=== PATIENT | male | born 1950 | race Caucasian/White ===

== ENCOUNTER 2018-01-09 12:35 | Inpatient (IN) | payer MEDICARE, OTHER ==
--- NOTE | 2018-01-09 13:06 | ED ---
General Adult HPI - General Chief complaint: Shortness of Breath Stated complaint: SOB Time Seen by Provider: 01/09/18 12:52 Source: patient, family, RN notes reviewed Mode of arrival: wheelchair Limitations: no limitations - History of Present Illness Initial comments: Patient is a pleasant 67-year-old male presenting to the emergency department with difficulty in breathing. Symptoms have been occurring for close to a month now. Symptoms are intermittent. Symptoms are exertional at times. Patient also has had increased stress recently and that also seems to make symptoms worse. Dyspnea is also worse with lying down. Patient states his right leg feels a little bit more full. Patient denies any leg discomfort. Patient states he has had some chest tightness. - Related Data Home Medications Medication Instructions Recorded Confirmed Aspirin EC [Ecotrin Low Dose] 81 mg PO HS 01/09/18 01/09/18 Chlorpheniramine/Dextromethorp 1 tab PO HS PRN 01/09/18 01/09/18 [Coricidin Hbp Cough & Cold Tab] Cholecalciferol (Vitamin D3) 2,000 unit PO DAILY 01/09/18 01/09/18 [Vitamin D3] Cyclobenzaprine [Flexeril] 5 - 10 mg PO Q8H PRN 01/09/18 01/09/18 Diazepam [Valium] 5 - 10 mg PO DAILY PRN 01/09/18 01/09/18 Ginkgo Biloba [place] Extract [Ginkgo] 60 mg PO DAILY 01/09/18 01/09/18 Magnesium 200 mg PO DAILY 01/09/18 01/09/18 [place]-3 Fatty Acids/Fish Oil [Fish 1 cap PO DAILY 01/09/18 01/09/18 Oil 1,000 mg Softgel] Saw [place] 160 mg PO DAILY 01/09/18 01/09/18 Ubidecarenone [Co Q-10] 100 mg PO DAILY 01/09/18 01/09/18 diphenhydrAMINE [Benadryl] 50 mg PO DAILY PRN 01/09/18 01/09/18 Allergies Allergy/AdvReac Type Severity Reaction Status Date / Time No Known Allergies Allergy Verified 01/09/18 13:06 Review of Systems ROS Statement: Those systems with pertinent positive or pertinent negative responses have been documented in the HPI. ROS Other: All systems not noted in ROS Statement are negative. Constitutional: Denies: fever Eyes: Denies: eye pain ENT: Denies: ear pain Respiratory: Reports: dyspnea Cardiovascular: Denies: palpitations Endocrine: Reports: fatigue Gastrointestinal: Denies: abdominal pain Genitourinary: Denies: dysuria Musculoskeletal: Denies: back pain Skin: Denies: rash Neurological: Denies: weakness Past Medical History Past Medical History: Cancer, Diabetes Mellitus, Hypertension, Pneumonia, Thyroid Disorder Additional Past Medical History / Comment(s): skin cancer History of Any Multi-Drug Resistant Organisms: None Reported Past Surgical History: Orthopedic Surgery Additional Past Surgical History / Comment(s): pelvis, ankle Past Psychological History: No Psychological Hx Reported Smoking Status: Former smoker Past Alcohol Use History: None Reported Past Drug Use History: None Reported General Exam Limitations: no limitations General appearance: alert, in no apparent distress Head exam: Present: atraumatic Eye exam: Present: normal appearance, PERRL ENT exam: Present: normal oropharynx Neck exam: Present: normal inspection Respiratory exam: Present: normal lung sounds bilaterally. Absent: chest wall tenderness Cardiovascular Exam: Present: regular rate, normal rhythm GI/Abdominal exam: Present: soft. Absent: tenderness Extremities exam: Present: normal inspection. Absent: calf tenderness Neurological exam: Present: alert Psychiatric exam: Present: normal affect, normal mood Skin exam: Absent: rash Course Vital Signs 01/09/18 01/09/18 12:38 14:09 Temperature 97.6 F Pulse Rate 96 84 Respiratory 20 18 Rate Blood Pressure 152/78 133/89 O2 Sat by Pulse 97 98 Oximetry EKG Findings - EKG Comments: EKG Findings:: Normal sinus rhythm 96. NC 198. QRS 124. QT 388. QTC or 90. Left axis. Left anterior fascicular block. Inverted T waves V5 V6. Medical Decision Making - Medical Decision Making Patient reevaluated and resting comfortably in bed. Patient and family updated on results and plan. Case was discussed in detail with Dr. Leal, who will admit for Dr. huddleston. Consults will be placed for cardiology and pulmonary. Patient does not meet sepsis criteria. Clinically patient presents more congestive heart failure than pneumonia however patient will be covered with antibiotics secondary to abnormal opacity on chest x-ray. - Lab Data Result diagrams: 01/09/18 13:00 01/09/18 13:00 Lab Results 01/09/18 01/09/18 01/09/18 Range/Units 13:00 13:00 13:00 WBC 5.3 (3.8-10.6) k/uL RBC 4.91 (4.30-5.90) m/uL Hgb 13.8 (13.0-17.5) gm/dL Hct 44.1 (39.0-53.0) % MCV 89.7 (80.0-100.0) fL MCH 28.2 (25.0-35.0) pg MCHC 31.4 (31.0-37.0) g/dL RDW 14.3 (11.5-15.5) % Plt Count 185 (150-450) k/uL Neutrophils % 71 % Lymphocytes % 21 % Monocytes % 6 % Eosinophils % 1 % Basophils % 1 % Neutrophils # 3.8 (1.3-7.7) k/uL Lymphocytes # 1.1 (1.0-4.8) k/uL Monocytes # 0.3 (0-1.0) k/uL Eosinophils # 0.1 (0-0.7) k/uL Basophils # 0.0 (0-0.2) k/uL Hypochromasia Slight PT (9.0-12.0) sec INR (<1.2) APTT (22.0-30.0) sec Sodium 140 (137-145) mmol/L Potassium 4.7 (3.5-5.1) mmol/L Chloride 107 (98-107) mmol/L Carbon Dioxide 29 (22-30) mmol/L Anion Gap 4 mmol/L BUN 26 H (9-20) mg/dL Creatinine 0.80 (0.66-1.25) mg/dL Est GFR (CKD-EPI)AfAm >90 (>60 ml/min/1.73 sqM) Est GFR (CKD-EPI)NonAf >90 (>60 ml/min/1.73 sqM) Glucose 146 H (74-99) mg/dL Calcium 8.5 (8.4-10.2) mg/dL Total Bilirubin 0.8 (0.2-1.3) mg/dL AST 36 (17-59) U/L ALT 62 (21-72) U/L Alkaline Phosphatase 74 (38-126) U/L Total Creatine Kinase 25 L (55-170) U/L CK-MB (CK-2) 2.0 (0.0-2.4) ng/mL CK-MB (CK-2) Rel Index 8.0 Troponin I 0.059 H* (0.000-0.034) ng/mL NT-Pro-B Natriuret Pep pg/mL Total Protein 5.9 L (6.3-8.2) g/dL Albumin 3.3 L (3.5-5.0) g/dL 01/09/18 01/09/18 Range/Units 13:00 13:00 WBC (3.8-10.6) k/uL RBC (4.30-5.90) m/uL Hgb (13.0-17.5) gm/dL Hct (39.0-53.0) % MCV (80.0-100.0) fL MCH (25.0-35.0) pg MCHC (31.0-37.0) g/dL RDW (11.5-15.5) % Plt Count (150-450) k/uL Neutrophils % % Lymphocytes % % Monocytes % % Eosinophils % % Basophils % % Neutrophils # (1.3-7.7) k/uL Lymphocytes # (1.0-4.8) k/uL Monocytes # (0-1.0) k/uL Eosinophils # (0-0.7) k/uL Basophils # (0-0.2) k/uL Hypochromasia PT 11.2 (9.0-12.0) sec INR 1.2 H (<1.2) APTT 25.1 (22.0-30.0) sec Sodium (137-145) mmol/L Potassium (3.5-5.1) mmol/L Chloride (98-107) mmol/L Carbon Dioxide (22-30) mmol/L Anion Gap mmol/L BUN (9-20) mg/dL Creatinine (0.66-1.25) mg/dL Est GFR (CKD-EPI)AfAm (>60 ml/min/1.73 sqM) Est GFR (CKD-EPI)NonAf (>60 ml/min/1.73 sqM) Glucose (74-99) mg/dL Calcium (8.4-10.2) mg/dL Total Bilirubin (0.2-1.3) mg/dL AST (17-59) U/L ALT (21-72) U/L Alkaline Phosphatase (38-126) U/L Total Creatine Kinase (55-170) U/L CK-MB (CK-2) (0.0-2.4) ng/mL CK-MB (CK-2) Rel Index Troponin I (0.000-0.034) ng/mL NT-Pro-B Natriuret Pep 67579 pg/mL Total Protein (6.3-8.2) g/dL Albumin (3.5-5.0) g/dL - Radiology Data Radiology results: report reviewed (Ultrasound of the right leg negative for DVT ), image reviewed (Chest x-ray shows bilateral effusions. Right lower lobe infiltrate.) Disposition Clinical Impression: Congestive heart failure, Community acquired pneumonia Disposition: ADMITTED IP TO THIS HOSP Is patient prescribed a controlled substance at d/c from ED?: No Referrals: Lashae Ward MD [Primary Care Provider] - 1-2 days Decision Time: 14:29
[2018-01-09 13:15] LABS: Basophils % (A) 1 %; Eosinophils # (A) 0.1 k/uL (0-0.7); Eosinophils % (A) 1 %; HCT 44.1 % (39.0-53.0); HGB 13.8 gm/dL (13.0-17.5); Hypochromasia Slight; Lymphocytes # (A) 1.1 k/uL (1.0-4.8); Lymphocytes % (A) 21 %; MCH 28.2 pg (25.0-35.0); MCHC 31.4 g/dL (31.0-37.0); MCV 89.7 fL (80.0-100.0); Mean Platelet Volume 7.9; Monocytes # (A) 0.3 k/uL (0-1.0); Monocytes % (A) 6 %; Neutrophils # (A) 3.8 k/uL (1.3-7.7); Neutrophils % (A) 71 %; Platelet Count 185 k/uL (150-450); RBC 4.91 m/uL (4.30-5.90); RDW 14.3 % (11.5-15.5); WBC 5.3 k/uL (3.8-10.6)
[2018-01-09 13:22] LABS: INR 1.2 (<1.2)
[2018-01-09 13:23] LABS: Partial Thromboplastin Time 25.1 sec (22.0-30.0); Prothrombin Time 11.2 sec (9.0-12.0)
--- NOTE | 2018-01-09 13:24 | XR ---
EXAMINATION TYPE: XR chest 2V DATE OF EXAM: 01/09/2018 COMPARISON: NONE HISTORY: Shortness of breath TECHNIQUE: Frontal and lateral views of the chest are obtained. FINDINGS: Scattered senescent parenchymal changes noted. Hyperinflation compatible with COPD. Patchy right lower lobe infiltrate with small bilateral effusions. Correlate for pneumonia. Mild stra ndy density left medial lung base. Nodular density right upper lobe may reflect rib end. Heart size is stable. Mediastinal structures are stable and grossly unremarkable. No evidence for hilar prominence. Degenerative changes dorsal spine. IMPRESSION: 1. Patchy right lower lobe infiltrate with small bilateral effusions. Correlate for pneumonia. Mild s trandy density left medial lung base.
[2018-01-09 13:30] LABS: ALT 62 U/L (21-72); AST 36 U/L (17-59); Albumin 3.3 g/dL (3.5-5.0); Alkaline Phosphatase 74 U/L (38-126); Anion Gap 4 mmol/L; Blood Urea Nitrogen 26 mg/dL (9-20); Calcium 8.5 mg/dL (8.4-10.2); Carbon Dioxide 29 mmol/L (22-30); Chloride 107 mmol/L (98-107); Glucose 146 mg/dL (74-99); Potassium 4.7 mmol/L (3.5-5.1); Sodium 140 mmol/L (137-145); Total Bilirubin 0.8 mg/dL (0.2-1.3); Total Protein 5.9 g/dL (6.3-8.2)
[2018-01-09 13:52] LABS: Troponin I 0.059 ng/mL (0.000-0.034)
--- NOTE | 2018-01-09 14:00 | US ---
EXAMINATION TYPE: US venous doppler duplex LE RT DATE OF EXAM: 01/09/2018 1:49 PM COMPARISON: NONE CLINICAL HISTORY: Pain. rt leg swelling, h/o dvt 45 years ago SIDE PERFORMED: right TECHNIQUE: The lower extremity deep venous system is examined utilizing real time linear array sonog ricardo with graded compression, doppler sonography and color-flow sonography. VESSELS IMAGED: External Iliac Vein (EIV) Common Femoral Vein Deep Femoral Vein Greater Saphenous Vein * Femoral Vein Popliteal Vein Small Saphenous Vein * Proximal Calf Veins (* superficial vessels) Grayscale, color doppler, spectral doppler imaging performed of the deep veins of the lower extremiti es. There is normal flow, compressibility, vascular waveforms. Right Leg: Appears negative for DVT IMPRESSION: Negative
[2018-01-09] MEDS ORDERED: AZITHROMYCIN 500 MG in SODIUM CHLORIDE 0.9% 250 ML IVPB STA (14:29)
[2018-01-09] MEDS ORDERED: cefTRIAXone IN SWFI 1,000 MG/10 ML SYRINGE IVP STA (14:29)
[2018-01-09] MEDS ORDERED: PNEUMONIA PROTOCOL UTILIZED 1 EACH MISC PO PRN (14:29)
[2018-01-09] MEDS ORDERED: ASPIRIN 325 MG TAB PO STA (14:29)
[2018-01-09] MEDS: FUROSEMIDE 10 MG/ML 4 ML VIAL IV SCH ×2 (15:36→21:22)
--- NOTE | 2018-01-09 16:31 | P.CNPUL ---
History of Present Illness Consult date: 01/09/18 Reason for consult: dyspnea History of present illness: 67-year-old male patient, presented to the emergency department with difficulty breathing of 3 weeks' duration. Has been expressing progressive exertional dyspnea orthopnea and some paroxysmal nocturnal dyspnea and lower extremity edema. No chest pain. No palpitation. No pleurisy. No hemoptysis. No fever chills or night sweats. No previous history of cardiac disease. He is an ex- smoker and quit smoking 3 years ago. He has a component of COPD. He does not utilize oxygen no refuses any form of respiratory medications or inhalers. He recalls a previous history of pneumonia with parapneumonic effusion requiring a chest tube insertion on the left. He comes into the hospital and he was found to have normal white count, normal renal function, significantly elevated proBNP level which is above 10,000. EKG showing left anterior fascicular block and Q waves over the anterior leads suggestive of an old LA. His cardiac mechanism is sinus. His chest x-ray shows CHF along with a right-sided pleural effusion. No weight loss. No other constitutional symptoms for now. No chest trauma. No pleurisy. The patient is living out of his trailer and he is moving to different states and he is about to move to [place] next week. Review of Systems Constitutional: Reports fatigue Eyes: denies as per HPI, denies blurred vision, denies bulging eye, denies decreased vision Ears: deny: decreased hearing, ear discharge, earache Ears, nose, mouth and throat: Reports hoarseness, Reports voice changes Cardiovascular: Reports decreased exercise tolerance, Reports dyspnea on exertion, Reports edema, Reports paroxysmal nocturnal dyspnea, Reports shortness of breath Respiratory: Reports dyspnea Gastrointestinal: Denies abdominal pain, Denies diarrhea, Denies nausea, Denies vomiting Genitourinary: Reports as per HPI Musculoskeletal: Denies myalgias Musculoskeletal: bilateral: ankle swelling, absent: ankle pain, ankle stiffness Integumentary: Denies pruritus, Denies rash Neurological: Reports as per HPI Psychiatric: Reports as per HPI Endocrine: Reports as per HPI Hematologic/Lymphatic: Reports as per HPI Allergic/Immunologic: Reports as per HPI Past Medical History Past Medical History: Cancer, Diabetes Mellitus, Hypertension, Pneumonia, Thyroid Disorder Additional Past Medical History / Comment(s): COPD, remote history of pneumonia , remote history of parapneumonic effusion requiring chest tube insertion, skin cancer, diabetes mellitus, hypertension, thyroid nodule surgically resected, vocal cord nodule, resected surgically, benign History of Any Multi-Drug Resistant Organisms: None Reported Past Surgical History: Orthopedic Surgery Additional Past Surgical History / Comment(s): Hip surgery, ankle surgery, partial thyroidectomy Past Psychological History: No Psychological Hx Reported Smoking Status: Former smoker Past Alcohol Use History: None Reported Past Drug Use History: None Reported Additional History: Patient is a retired [employer]. Medications and Allergies Home Medications Medication Instructions Recorded Confirmed Type Aspirin EC [Ecotrin Low Dose] 81 mg PO HS 01/09/18 01/09/18 History Chlorpheniramine/Dextromethorp 1 tab PO HS PRN 01/09/18 01/09/18 History [Coricidin Hbp Cough & Cold Tab] Cholecalciferol (Vitamin D3) 2,000 unit PO DAILY 01/09/18 01/09/18 History [Vitamin D3] Cyclobenzaprine [Flexeril] 5 - 10 mg PO Q8H PRN 01/09/18 01/09/18 History Diazepam [Valium] 5 - 10 mg PO DAILY PRN 01/09/18 01/09/18 History Ginkgo Biloba [place] Extract [Ginkgo] 60 mg PO DAILY 01/09/18 01/09/18 History Magnesium 200 mg PO DAILY 01/09/18 01/09/18 History [place]-3 Fatty Acids/Fish Oil [Fish 1 cap PO DAILY 01/09/18 01/09/18 History Oil 1,000 mg Softgel] Saw [place] 160 mg PO DAILY 01/09/18 01/09/18 History Ubidecarenone [Co Q-10] 100 mg PO DAILY 01/09/18 01/09/18 History diphenhydrAMINE [Benadryl] 50 mg PO DAILY PRN 01/09/18 01/09/18 History Allergies Allergy/AdvReac Type Severity Reaction Status Date / Time No Known Allergies Allergy Verified 01/09/18 13:06 Physical Exam Vitals: Vital Signs Temp Pulse Resp BP Pulse Ox 01/09/18 16:11 97.6 F 01/09/18 15:40 89 18 147/91 100 01/09/18 14:09 84 18 133/89 98 01/09/18 12:38 97.6 F 96 20 152/78 97 Intake and Output 01/09/18 01/09/18 01/09/18 06:59 14:59 22:59 Other: Weight 103.419 kg Gen. appearance, comfortable likely distress Head exam was generally normal. There was no scleral icterus or corneal arcus. Mucous membranes were moist. Neck was supple and with jugular venous distension, thyromegaly, or carotid bruits. Carotids were easily palpable bilaterally. There was no adenopathy. Lungs sounds are diminished in the right lung base along with dullness to percussion the patient has bilateral basilar crackles Cardiac exam revealed the PMI to be normally situated and sized. The rhythm was regular and no extrasystoles were noted during several minutes of auscultation. The first and second heart sounds were normal and physiologic splitting of the second heart sound was noted. There were no murmurs, rubs, clicks, or gallops. Abdominal exam revealed normal bowel sounds. The abdomen was soft, non-tender, and without masses, organomegaly, or appreciable enlargement of the abdominal aorta. Examination of the extremities revealed easily palpable radial, femoral and pedal pulses. There was no cyanosis, clubbing and there is +1 pitting edema Examination of the skin revealed no evidence of significant rashes, suspicious appearing nevi or other concerning lesions. Neurologically awake and alert and there is no focal neurological deficit Results - Laboratory Findings CBC and BMP: 01/09/18 13:00 01/09/18 13:00 PT/INR, D-dimer PT 11.2 sec (9.0-12.0) 01/09/18 13:00 INR 1.2 (<1.2) H 01/09/18 13:00 Abnormal lab findings: Abnormal Labs 01/09/18 01/09/18 01/09/18 13:00 13:00 13:00 INR 1.2 H BUN 26 H Glucose 146 H Total Creatine Kinase 25 L Troponin I 0.059 H* Total Protein 5.9 L Albumin 3.3 L - Diagnostic Findings Chest x-ray: image reviewed Assessment and Plan Plan: Assessment 1 subacute dyspnea with presentation consistent with congestion heart failure, interstitial pulmonary edema in the right-sided pleural effusion addition to increased lower extremity edema and a elevated BNP level 2 right-sided pleural effusion, likely on the basis of CHF 3 abnormal EKG with 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 7 ex-smoker Plan Start the patient IV Lasix 40 mg every 8 hours. Repeat chest x-ray with the next 24-48 hours to assess progression of his pulmonary edema and right-sided pleural effusion. Obtain echocardiogram. Cardiology consultation. Thoracentesis of the pleural effusion remains unchanged. Admit to telemetry. We'll continue to follow.
[2018-01-09] MEDS ORDERED: diphenhydrAMINE 50 MG CAP PO PRN (16:47)
--- NOTE | 2018-01-09 17:07 | P.HPIM ---
History of Present Illness H&P Date: 01/09/18 Gelacio Vásquez he is a 67-year-old male patient of Dr. Ward who presented to [facility] emergency room due to worsening shortness of breath he was evaluated in the emergency room his preliminary evaluation revealed evidence of acute congestive heart failure exacerbation with pulmonary edema, and patchy right lower lobe infiltrate suggestive of pneumonia with small bilateral pleural effusion he was started on IV Lasix and IV antibiotic and was admitted to telemetry floor. Patient denies ever being diagnosed with congestive heart failure, he denies having any heart attacks in the past he denies having any cardiac catheterization, he states that he had hypertension, hyperlipidemia, and insulin -dependent diabetes mellitus, he underwent extreme diet and lost more than 170 pounds, and stopped taking all his blood pressure medication and his insulin and has been doing well for the last 3 years, this is his first admission to the hospital in many years. He denies having any chest pain, right lower extremity was more swollen than the left in the emergency room, he underwent right lower extremity Doppler which was negative for DVT. BNP was elevated at 10,100 Patient was subsequently admitted to telemetry floor, he was started on oxygen supplement, and IV Lasix 40 mg every 8 hours, he was also started on IV Rocephin and IV Zithromax, sputum culture was ordered. Past Medical History Past Medical History: Cancer, Diabetes Mellitus, Hypertension, Pneumonia, Thyroid Disorder Additional Past Medical History / Comment(s): COPD, remote history of pneumonia , remote history of parapneumonic effusion requiring chest tube insertion, skin cancer, diabetes mellitus, hypertension, thyroid nodule surgically resected, vocal cord nodule, resected surgically, benign History of Any Multi-Drug Resistant Organisms: None Reported Past Surgical History: Orthopedic Surgery Additional Past Surgical History / Comment(s): Hip surgery, ankle surgery, partial thyroidectomy Past Psychological History: No Psychological Hx Reported Smoking Status: Former smoker Past Alcohol Use History: None Reported Past Drug Use History: None Reported Medications and Allergies Home Medications Medication Instructions Recorded Confirmed Type Aspirin EC [Ecotrin Low Dose] 81 mg PO HS 01/09/18 01/09/18 History Chlorpheniramine/Dextromethorp 1 tab PO HS PRN 01/09/18 01/09/18 History [Coricidin Hbp Cough & Cold Tab] Cholecalciferol (Vitamin D3) 2,000 unit PO DAILY 01/09/18 01/09/18 History [Vitamin D3] Cyclobenzaprine [Flexeril] 5 - 10 mg PO Q8H PRN 01/09/18 01/09/18 History Diazepam [Valium] 5 - 10 mg PO DAILY PRN 01/09/18 01/09/18 History Ginkgo Biloba [place] Extract [Ginkgo] 60 mg PO DAILY 01/09/18 01/09/18 History Magnesium 200 mg PO DAILY 01/09/18 01/09/18 History [place]-3 Fatty Acids/Fish Oil [Fish 1 cap PO DAILY 01/09/18 01/09/18 History Oil 1,000 mg Softgel] Saw [place] 160 mg PO DAILY 01/09/18 01/09/18 History Ubidecarenone [Co Q-10] 100 mg PO DAILY 01/09/18 01/09/18 History diphenhydrAMINE [Benadryl] 50 mg PO DAILY PRN 01/09/18 01/09/18 History Allergies Allergy/AdvReac Type Severity Reaction Status Date / Time No Known Allergies Allergy Verified 01/09/18 13:06 Physical Exam Vitals: Vital Signs Temp Pulse Resp BP Pulse Ox 01/09/18 16:11 97.6 F 01/09/18 15:40 89 18 147/91 100 01/09/18 14:09 84 18 133/89 98 01/09/18 12:38 97.6 F 96 20 152/78 97 Intake and Output 01/09/18 01/09/18 01/09/18 06:59 14:59 22:59 Other: # Voids 1 Weight 103.419 kg In general patient is alert and oriented 3 in no apparent distress HEENT head normocephalic and atraumatic Neck is supple no JVD no goiter no lymphadenopathy Chest exam reveals a few scattered crackles no wheezing Cardiac exam reveals regular heart sounds no gallops no murmurs Abdomen is soft nontender no organomegaly with normal bowel sounds Extremity exam reveals 2+ edema right worse than left no cyanosis or clubbing Neurological examination reveals no gross deficit Results CBC & Chem 7: 01/09/18 13:00 01/09/18 13:00 Labs: Abnormal Lab Results - Last 24 Hours (Table) 01/09/18 01/09/18 01/09/18 Range/Units 13:00 13:00 13:00 INR 1.2 H (<1.2) BUN 26 H (9-20) mg/dL Glucose 146 H (74-99) mg/dL Total Creatine Kinase 25 L (55-170) U/L Troponin I 0.059 H* (0.000-0.034) ng/mL Total Protein 5.9 L (6.3-8.2) g/dL Albumin 3.3 L (3.5-5.0) g/dL Assessment and Plan Plan: #1 acute congestive heart failure exacerbation echocardiogram is ordered, continue with IV Lasix #2 right lower lobe infiltrate with small bilateral pleural effusions, started on IV Zithromax and IV Rocephin will check sputum culture will recheck chest x- ray in 1-2 days #3 previous history of hypertension blood pressure is mildly elevated on presentation, patient stopped all of his blood pressure medications 3 years ago will assess during this admission #4 previous history of insulin-dependent diabetes mellitus, patient lost 170 pounds about 3 years ago and stopped taking insulin, glucose on presentation 146 , will check hemoglobin A1c #5 abnormal EKG showing evidence of anterior OH possibly subacute to chronic patient denies ever having any chest pain or ever having any myocardial infarction no old EKG to compare, troponin 0.059, cardiology consultation was requested Medication and labs were reviewed please see orders will follow closely Radiology and pulmonary consultation also following
[2018-01-09] MEDS: NITROGLYCERIN OINT 1 INCH/GM PACKET TOPICAL SCH ×2 (18:08→21:22)
[2018-01-09 20:13] LABS: Creatine Kinase MB 1.6 ng/mL (0.0-2.4)
[2018-01-09 20:14] LABS: Troponin I 0.069 ng/mL (0.000-0.034)
[2018-01-09] MEDS: ASPIRIN 81 MG PO SCH (21:22)
[2018-01-10 02:17] LABS: Creatine Kinase MB 1.2 ng/mL (0.0-2.4)
[2018-01-10 02:29] LABS: Troponin I 0.077 ng/mL (0.000-0.034)
[2018-01-10] MEDS: FUROSEMIDE 10 MG/ML 4 ML VIAL IV SCH ×2 (06:05→17:19)
--- NOTE | 2018-01-10 06:19 | XR ---
EXAMINATION TYPE: XR chest 2V DATE OF EXAM: 01/10/2018 HISTORY: pneumonia. REFERENCE: Previous study dated 01/09/2018. FINDINGS: Lung volumes are prominent. The heart is enlarged. There is vascular congestion. There is b ibasilar airspace disease there are bilateral effusions, greater on the right than the left. Overall aeration at the right lung base has improved. IMPRESSION: 1. COPD. 2. CARDIOMEGALY. 3. SLIGHT IMPROVEMENT IN THE AERATION AT THE RIGHT LUNG BASE. 4. BILATERAL EFFUSIONS, LARGER ON THE RIGHT THAN LEFT.
--- NOTE | 2018-01-10 08:15 | ECHOF ---
Referral Reason:Heart Failure MEASUREMENTS -------- HEIGHT: 188.0 cm WEIGHT: 103.4 kg BP: 133/84 RVIDd: 3.3 cm (< 3.3) IVSd: 1.3 cm (0.6 - 1.1) LVIDd: 7.1 cm (3.9 - 5.3) LVPWd: 1.4 cm (0.6 - 1.1) IVSs: 1.5 cm LVIDs: 6.6 cm LVPWs: 1.6 cm LAESV Index (A-L): 87.35 ml/m Ao Diam: 3.8 cm (2.0 - 3.7) AV Cusp: 2.2 cm (1.5 - 2.6) LA Diam: 5.4 cm (2.7 - 3.8) EPSS: 2.1 cm MV E Shimon: 0.98 m/s MV DecT: 257 ms MV A Shimon: 0.63 m/s MV E/A Ratio: 1.56 RAP: 5.00 mmHg RVSP: 46.65 mmHg %FS: 6.64 % EDV(Teich): 242.69 ml EF(Teich): 14.41 % ESV(Teich): 207.72 ml IVSd: 1.59 cm (0.6 - 1.1) IVSs: 1.56 cm LVIDd: 6.84 cm (3.9 - 5.3) LVIDs: 6.39 cm LVPWd: 1.56 cm (0.6 - 1.1) LVPWs: 1.85 cm MV EF SLOPE: 97.39 mm/s (70 - 150) MV EXCURSION: 1.88 cm (> 18.000) SV(Teich): 34.97 ml FINDINGS -------- Sinus rhythm with extra systolic beats. This was a technically good study. The left ventricle is severely dilated. There is mild concentric left ventricular hypertrophy. Th ere is severe global hypokinesis of LV . Overall left ventricular systolic function is severely imp aired with, an EF < 20%. The right ventricle is mildly enlarged. The right ventricular systolic function is moderately impai red. LA is severely dilated >40 ml/m2 RA appears enlarged. Aortic valve is trileaflet and is mildly thickened. There is no evidence of aortic regurgitation. There is no evidence of aortic stenosis. The mitral valve leaflets are mildly thickened. Moderate mitral regurgitation is present. Mild tricuspid regurgitation present. There is mild to moderate pulmonary hypertension. The right ventricular systolic pressure, as measured by Doppler, is 46.65mmHg. Trace/mild (physiologic) pulmonic regurgitation. The aortic root size is normal. IVC Not well visulized. There is a small, generalized pericardial effusion present. CONCLUSIONS -------- 1. Sinus rhythm with extra systolic beats. 2. This was a technically good study. 3. The left ventricle is severely dilated. 4. There is mild concentric left ventricular hypertrophy. 5. There is severe global hypokinesis of LV . 6. Overall left ventricular systolic function is severely impaired with, an EF < 20%. 7. The right ventricle is mildly enlarged. 8. The right ventricular systolic function is moderately impaired. 9. LA is severely dilated >40 ml/m2 10. RA appears enlarged. 11. Aortic valve is trileaflet and is mildly thickened. 12. The mitral valve leaflets are mildly thickened. 13. Moderate mitral regurgitation is present. 14. Mild tricuspid regurgitation present. 15. There is mild to moderate pulmonary hypertension. 16. Trace/mild (physiologic) pulmonic regurgitation. 17. The aortic root size is normal. 18. IVC Not well visulized. 19. There is a small, generalized pericardial effusion present. TEST ENG[employer]: Arthur Madera RDCS
[2018-01-10] MEDS: CHOLECALCIFEROL 1,000 UNIT TAB PO SCH (08:24)
[2018-01-10] MEDS: NITROGLYCERIN OINT 1 INCH/GM PACKET TOPICAL SCH (08:24)
[2018-01-10] MEDS: MAGNESIUM OXIDE 400 MG TAB PO SCH (08:24)
[2018-01-10] MEDS ORDERED: cefTRIAXone IN SWFI 1,000 MG/10 ML SYRINGE IVP SCH (09:00)
[2018-01-10] MEDS ORDERED: AZITHROMYCIN 500 MG TAB PO SCH (09:00)
[2018-01-10] MEDS ORDERED: NON-FORMULARY DRUG (Saw Palmetto [Saw Palmetto] 160 MG) PO SCH (09:00)
[2018-01-10] MEDS ORDERED: NON-FORMULARY DRUG (Ubidecarenone [Co Q-10] 100 MG) PO SCH (09:00)
[2018-01-10] MEDS ORDERED: NON-FORMULARY DRUG (Omega-3 Fatty Acids/Fish Oil [Fish Oil 1,000 Mg Softgel] 1 CAP) PO SCH (09:00)
--- NOTE | 2018-01-10 10:43 | P.CRDCN ---
History of Present Illness History of present illness: This is Dr. Sanders dictating a consult on this patient The patient was interviewed and examined by me IMPRESSION / ASSESSMENT: Acute congestive heart failure, systolic dysfunction, duration unknown, at least 3 weeks Left ventricle ejection fraction less than 20% with severely dilated left ventricle RV enlargement and RV dysfunction Right atrial enlargement Severely dilated left atrium Moderate mitral regurgitation This is a new diagnosis Mildly abnormal troponins Past history of smoking, quit 3 years back Denies alcohol use Prior history of pneumonia with parapneumonic effusion and chest tube placement to the left side PLAN: Medical therapy for acute congestive heart failure and initiation of medications for cardiomyopathy Hemoglobin A1c TSH Consideration for coronary angiography HPI Patient presented with at least 3 weeks of increasing shortness of breath with exertion and difficulty lying flat in bed, orthopnea. No chest discomfort no syncope no palpitations Denied chest discomfort or tightness to me but did state that he had tightness in the chest in the emergency room No prior cardiac history ROS: No fever chills or rigors, no cough, phlegm or expectoration, no nausea, vomiting or diarrhea, no hematuria, dysuria, no musculoskeletal complaints, no strokes or seizures, no skin lesions. EXAMINATION Afebrile 96.4F, pulse rate in the 80s, blood pressure 143/98 looks comfortable sitting in bed Breath sounds reduced bilaterally but no crackles no rhonchi Heart sounds are normal no S3 gallop no murmurs no rub Abdomen is soft nontender Extremities are warm no edema REVIEW OF LABS, ECG Hemoglobin 13.8, sodium 140, potassium 4.7, BUN 26, creatinine 0.8 Borderline troponins of 0.059, 0.069 and 0.077 NT proBNP greater than 10,000 Right lower lobe patchy infiltrate with small bilateral effusions, mild strandy density left medial lung base No DVT on venous Dopplers Twelve-lead ECG shows sinus rhythm OH interval less than 200 ms narrow QRS T- wave inversions in V5 and V6 no other ST segment abnormalities left anterior fascicular block Past Medical History Past Medical History: Cancer, Diabetes Mellitus, Hypertension, Pneumonia, Thyroid Disorder Additional Past Medical History / Comment(s): COPD, remote history of pneumonia , remote history of parapneumonic effusion requiring chest tube insertion, skin cancer, diabetes mellitus, hypertension, thyroid nodule surgically resected, vocal cord nodule, resected surgically, benign History of Any Multi-Drug Resistant Organisms: None Reported Past Surgical History: Orthopedic Surgery Additional Past Surgical History / Comment(s): Hip surgery, ankle surgery, partial thyroidectomy Past Anesthesia/Blood Transfusion Reactions: No Reported Reaction Smoking Status: Former smoker - Past Family History Father Family Medical History: No Reported History Additional Family Medical History / Comment(s): from old age Mother Family Medical History: Congestive Heart Failure (CHF), Myocardial Infarction ( [place]) Medications and Allergies Home Medications Medication Instructions Recorded Confirmed Type Aspirin EC [Ecotrin Low Dose] 81 mg PO HS 01/09/18 01/09/18 History Chlorpheniramine/Dextromethorp 1 tab PO HS PRN 01/09/18 01/09/18 History [Coricidin Hbp Cough & Cold Tab] Cholecalciferol (Vitamin D3) 2,000 unit PO DAILY 01/09/18 01/09/18 History [Vitamin D3] Cyclobenzaprine [Flexeril] 5 - 10 mg PO Q8H PRN 01/09/18 01/09/18 History Diazepam [Valium] 5 - 10 mg PO DAILY PRN 01/09/18 01/09/18 History Ginkgo Biloba [place] Extract [Ginkgo] 60 mg PO DAILY 01/09/18 01/09/18 History Magnesium 200 mg PO DAILY 01/09/18 01/09/18 History [place]-3 Fatty Acids/Fish Oil [Fish 1 cap PO DAILY 01/09/18 01/09/18 History Oil 1,000 mg Softgel] Saw [place] 160 mg PO DAILY 01/09/18 01/09/18 History Ubidecarenone [Co Q-10] 100 mg PO DAILY 01/09/18 01/09/18 History diphenhydrAMINE [Benadryl] 50 mg PO DAILY PRN 01/09/18 01/09/18 History Allergies Allergy/AdvReac Type Severity Reaction Status Date / Time No Known Allergies Allergy Verified 01/09/18 13:06 Physical Exam Vitals: Vital Signs Temp Pulse Pulse Resp BP BP BP 01/10/18 09:47 80 143/98 01/10/18 08:23 01/10/18 08:20 96.4 F L 90 16 150/99 01/10/18 04:00 98 F 70 18 119/70 01/10/18 00:00 98.3 F 74 18 114/66 01/09/18 20:00 97.8 F 71 18 122/73 01/09/18 16:57 98 18 01/09/18 16:11 97.6 F 01/09/18 15:40 89 18 147/91 01/09/18 14:09 84 18 133/89 01/09/18 12:38 97.6 F 96 20 152/78 Pulse Ox 01/10/18 09:47 01/10/18 08:23 98 01/10/18 08:20 98 01/10/18 04:00 99 01/10/18 00:00 98 01/09/18 20:00 97 01/09/18 16:57 01/09/18 16:11 01/09/18 15:40 100 01/09/18 14:09 98 01/09/18 12:38 97 Intake and Output 01/09/18 01/10/18 01/10/18 22:59 06:59 14:59 Intake Total 240 Output Total 1100 200 Balance 240 -1100 -200 Intake: Oral 240 Output: Urine 1100 200 Other: Voiding Method Urinal # Voids 1 Weight 103.4 kg 103.2 kg Results 01/09/18 13:00 01/09/18 13:00 Cardiac Enzymes 01/09/18 01/09/18 01/09/18 Range/Units 13:00 13:00 19:05 AST 36 (17-59) U/L CK-MB (CK-2) 2.0 1.6 (0.0-2.4) ng/mL Troponin I 0.059 H* 0.069 H* (0.000-0.034) ng/mL 01/10/18 Range/Units 00:52 AST (17-59) U/L CK-MB (CK-2) 1.2 (0.0-2.4) ng/mL Troponin I 0.077 H* (0.000-0.034) ng/mL Coagulation 01/09/18 Range/Units 13:00 PT 11.2 (9.0-12.0) sec APTT 25.1 (22.0-30.0) sec CBC 01/09/18 Range/Units 13:00 WBC 5.3 (3.8-10.6) k/uL RBC 4.91 (4.30-5.90) m/uL Hgb 13.8 (13.0-17.5) gm/dL Hct 44.1 (39.0-53.0) % Plt Count 185 (150-450) k/uL Comprehensive Metabolic Panel 01/09/18 Range/Units 13:00 Sodium 140 (137-145) mmol/L Potassium 4.7 (3.5-5.1) mmol/L Chloride 107 (98-107) mmol/L Carbon Dioxide 29 (22-30) mmol/L BUN 26 H (9-20) mg/dL Creatinine 0.80 (0.66-1.25) mg/dL Glucose 146 H (74-99) mg/dL Calcium 8.5 (8.4-10.2) mg/dL AST 36 (17-59) U/L ALT 62 (21-72) U/L Alkaline Phosphatase 74 (38-126) U/L Total Protein 5.9 L (6.3-8.2) g/dL Albumin 3.3 L (3.5-5.0) g/dL Current Medications Generic Name Dose Route Start Last Admin Trade Name Freq PRN Reason Stop Dose Admin Albuterol/Ipratropium 3 ml 01/09/18 14:29 Duoneb 0.5 Mg-3 Mg/3 Ml Soln INHALATION RT-Q4H PRN shortness of breath Aspirin 81 mg 01/09/18 21:00 01/09/18 21:22 Aspirin PO 81 mg HS PAO Administration Azithromycin 500 mg 01/10/18 09:00 01/10/18 08:24 Zithromax PO 500 mg DAILY PAO Administration Carvedilol 3.125 mg 01/10/18 17:30 Coreg PO BID-W/MEALS PAO Ceftriaxone Sodium 1,000 mg 01/10/18 09:00 Rocephin IVP 01/13/18 09:01 Q24HR PAO Cholecalciferol 2,000 unit 01/10/18 09:00 01/10/18 08:24 Vitamin D3 PO 2,000 unit DAILY PAO Administration Diphenhydramine HCl 50 mg 01/09/18 16:47 Benadryl PO DAILY PRN Allergy Symptoms Furosemide 40 mg 01/10/18 10:45 Lasix IV Q12H PAO Losartan Potassium 25 mg 01/11/18 12:00 Cozaar PO DAILY PAO Magnesium Oxide 400 mg 01/10/18 09:00 08/25/18 08:24 Mag-Ox PO 400 mg DAILY PAO Administration Miscellaneous Information 1 each 01/09/18 14:29 Pneumonia Protocol Utilized PO ONCE PRN Per Protocol Sodium Chloride 10 ml 01/09/18 21:00 01/10/18 08:24 Saline Flush IV 10 ml BID PAO Administration Intake and Output 01/09/18 01/10/18 01/10/18 22:59 06:59 14:59 Intake Total 240 Output Total 1100 200 Balance 240 -1100 -200 Intake: Oral 240 Output: Urine 1100 200 Other: Voiding Method Urinal # Voids 1 Weight 103.4 kg 103.2 kg 01/09/18 13:00 01/09/18 13:00
[2018-01-10] MEDS ORDERED: FUROSEMIDE 10 MG/ML 4 ML VIAL IV SCH (10:45)
[2018-01-10 11:44] VITALS: BMI 29.2
[2018-01-10] MEDS ORDERED: LOSARTAN 25 MG TAB PO STA (11:54)
--- NOTE | 2018-01-10 11:56 | P.PN ---
Subjective Progress Note Date: 01/10/18 Principal diagnosis: Acute exacerbation of systolic congestive heart failure. 67-year-old male patient, presented to the emergency department with difficulty breathing of 3 weeks' duration. Has been expressing progressive exertional dyspnea orthopnea and some paroxysmal nocturnal dyspnea and lower extremity edema. No chest pain. No palpitation. No pleurisy. No hemoptysis. No fever chills or night sweats. No previous history of cardiac disease. He is an ex- smoker and quit smoking 3 years ago. He has a component of COPD. He does not utilize oxygen no refuses any form of respiratory medications or inhalers. He recalls a previous history of pneumonia with parapneumonic effusion requiring a chest tube insertion on the left. He comes into the hospital and he was found to have normal white count, normal renal function, significantly elevated proBNP level which is above 10,000. EKG showing left anterior fascicular block and Q waves over the anterior leads suggestive of an old AR. His cardiac mechanism is sinus. His chest x-ray shows CHF along with a right-sided pleural effusion. No weight loss. No other constitutional symptoms for now. No chest trauma. No pleurisy. The patient is living out of his trailer and he is moving to different states and he is about to move to [place] next week. Patient is seen again today 01/10/2018 in follow-up on the selective care unit. He is awake and alert in no acute distress. He is breathing a bit better today as compared to yesterday. He diuresed well and is currently in a negative balance. Chest x-ray revealed evidence of COPD, cardiomegaly and slight improvement in aeration of the right lung base. Bilateral pleural effusions right greater than left. Currently on Lasix 40 mg IV push every 12 hours. He was found to have severely impaired left ventricular systolic function with ejection fraction less than 20%. Cardiology is on the case as well. Objective - Vital Signs Vital signs: Vital Signs Temp 96.8 F L 01/10/18 11:47 Pulse 96 01/10/18 11:47 Resp 16 01/10/18 11:47 BP 167/87 01/10/18 11:47 Pulse Ox 97 01/10/18 11:47 Intake & Output 01/09/18 01/10/18 01/10/18 18:59 06:59 18:59 Intake Total 240 Output Total 1100 200 Balance 240 -1100 -200 Weight 103.4 kg 103.2 kg 103.2 kg Intake: Oral 240 Output: Urine 1100 200 Other: Voiding Method Urinal # Voids 1 - Exam Gen. appearance, comfortable likely distress Head exam was generally normal. There was no scleral icterus or corneal arcus. Mucous membranes were moist. Neck was supple and with jugular venous distension, thyromegaly, or carotid bruits. Carotids were easily palpable bilaterally. There was no adenopathy. Lungs sounds are diminished in the right lung base along with dullness to percussion the patient has bilateral basilar crackles Cardiac exam revealed the PMI to be normally situated and sized. The rhythm was regular and no extrasystoles were noted during several minutes of auscultation. The first and second heart sounds were normal and physiologic splitting of the second heart sound was noted. There were no murmurs, rubs, clicks, or gallops. Abdominal exam revealed normal bowel sounds. The abdomen was soft, non-tender, and without masses, organomegaly, or appreciable enlargement of the abdominal aorta. Examination of the extremities revealed easily palpable radial, femoral and pedal pulses. There was no cyanosis, clubbing and there is +1 pitting edema Examination of the skin revealed no evidence of significant rashes, suspicious appearing nevi or other concerning lesions. Neurologically awake and alert and there is no focal neurological deficit - Labs CBC & Chem 7: 01/09/18 13:00 01/09/18 13:00 Labs: Abnormal Lab Results - Last 24 Hours (Table) 01/09/18 01/09/18 01/09/18 Range/Units 13:00 13:00 13:00 INR 1.2 H (<1.2) BUN 26 H (9-20) mg/dL Glucose 146 H (74-99) mg/dL Total Creatine Kinase 25 L (55-170) U/L Troponin I 0.059 H* (0.000-0.034) ng/mL Total Protein 5.9 L (6.3-8.2) g/dL Albumin 3.3 L (3.5-5.0) g/dL 01/09/18 01/10/18 Range/Units 19:05 00:52 INR (<1.2) BUN (9-20) mg/dL Glucose (74-99) mg/dL Total Creatine Kinase (55-170) U/L Troponin I 0.069 H* 0.077 H* (0.000-0.034) ng/mL Total Protein (6.3-8.2) g/dL Albumin (3.5-5.0) g/dL Assessment and Plan Assessment: Assessment 1 acute hypoxic respiratory failure secondary to an acute exacerbation of systolic congestive heart failure, new onset. Infection fraction less than 20%. 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 7 ex-smoker Plan The patient was seen and evaluated by Dr. Alex. Chest x-ray, echocardiogram reviewed. Slight improvement in the pleural effusion on the right. Patient has severely impaired left ventricular systolic function with ejection fraction less than 20%. Cardiology is following. Maintained on IV Lasix every 12 hours now. May require cardiac catheterization once recovered. We'll discontinue antibiotics for now. We'll increase his activity as tolerated. We'll continue to follow. I, the cosigning physician, performed a history & physical examination of the patient. Lungs sounds with crackles in the posterior bases right greater than left. Maintaining good O2 saturations in the 90s on 2 L/m per nasal cannula. I discussed the assessment and plan of care with my nurse practitioner, Nitza Srinivasan. I attest to the above note as dictated by her.
[2018-01-10 12:51] LABS: T4, Free (Free Thyroxine) 1.95 ng/dL (0.78-2.19)
[2018-01-10] MEDS ORDERED: ASPIRIN 325 MG TAB PO SCH (14:31)
--- NOTE | 2018-01-10 15:21 | P.PN ---
Subjective Progress Note Date: 01/10/18 Gelacio Vásquez he is a 67-year-old male patient of Dr. Ward who presented to [facility] emergency room due to worsening shortness of breath he was evaluated in the emergency room his preliminary evaluation revealed evidence of acute congestive heart failure exacerbation with pulmonary edema, and patchy right lower lobe infiltrate suggestive of pneumonia with small bilateral pleural effusion he was started on IV Lasix and IV antibiotic and was admitted to telemetry floor. Patient denies ever being diagnosed with congestive heart failure, he denies having any heart attacks in the past he denies having any cardiac catheterization, he states that he had hypertension, hyperlipidemia, and insulin -dependent diabetes mellitus, he underwent extreme diet and lost more than 170 pounds, and stopped taking all his blood pressure medication and his insulin and has been doing well for the last 3 years, this is his first admission to the hospital in many years. He denies having any chest pain, right lower extremity was more swollen than the left in the emergency room, he underwent right lower extremity Doppler which was negative for DVT. BNP was elevated at 10,100 Patient was subsequently admitted to telemetry floor, he was started on oxygen supplement, and IV Lasix 40 mg every 8 hours, he was also started on IV Rocephin and IV Zithromax, sputum culture was ordered. On 01/10/2018 patient is feeling better he is alert and oriented in no apparent distress he is still having occasional cough without any sputum production he is having shortness of breath but significantly improved from before there is no chest pain no palpitation no dizziness no fever or chills no nausea or vomiting no abdominal pain no diarrhea and no urinary symptoms Objective - Vital Signs Vital signs: Vital Signs Temp 96.8 F L 01/10/18 11:47 Pulse 96 01/10/18 11:47 Resp 16 01/10/18 11:47 BP 167/87 01/10/18 11:47 Pulse Ox 97 01/10/18 11:47 Intake & Output 01/09/18 01/10/18 01/10/18 18:59 06:59 18:59 Intake Total 240 300 Output Total 1100 200 Balance 240 -1100 100 Weight 103.4 kg 103.2 kg 103.2 kg Intake: Oral 240 300 Output: Urine 1100 200 Other: Voiding Method Urinal # Voids 1 1 - Exam In general patient is alert and oriented 3 in no apparent distress HEENT head normocephalic and atraumatic Neck is supple no JVD no goiter no lymphadenopathy Chest exam reveals a few scattered crackles no wheezing Cardiac exam reveals regular heart sounds no gallops no murmurs Abdomen is soft nontender no organomegaly with normal bowel sounds Extremity exam reveals 2+ edema right worse than left no cyanosis or clubbing Neurological examination reveals no gross deficit - Labs CBC & Chem 7: 01/09/18 13:00 01/09/18 13:00 Labs: Abnormal Lab Results - Last 24 Hours (Table) 01/09/18 01/09/18 01/10/18 Range/Units 13:00 19:05 00:52 Troponin I 0.069 H* 0.077 H* (0.000-0.034) ng/mL TSH 0.435 L (0.465-4.680) mIU/L Assessment and Plan Plan: #1 acute systolic congestive heart failure exacerbation echocardiogram is ordered, continue with IV Lasix echocardiogram done and revealed significant decrease in ejection fraction to 20% cardiology are following #2 right lower lobe infiltrate with small bilateral pleural effusions, started on IV Zithromax and IV Rocephin will check sputum culture will recheck chest x- ray in 1-2 days. Patient reevaluated today no evidence of any acute infiltrate no clinical evidence of pneumonia and antibiotics were discontinued. #3 previous history of hypertension blood pressure is mildly elevated on presentation, patient stopped all of his blood pressure medications 3 years ago will assess during this admission #4 previous history of insulin-dependent diabetes mellitus, patient lost 170 pounds about 3 years ago and stopped taking insulin, glucose on presentation 146 , will check hemoglobin A1c #5 abnormal EKG showing evidence of anterior VA possibly subacute to chronic patient denies ever having any chest pain or ever having any myocardial infarction no old EKG to compare, troponin 0.059, cardiology consultation was requested Medication and labs were reviewed please see orders will follow closely Radiology and pulmonary consultation also following
[2018-01-10] MEDS: CARVEDILOL 3.125 MG TAB PO SCH (17:10)
[2018-01-10 20:04] LABS: Hemoglobin A1C 4.8 % (4.0-6.0)
[2018-01-10] MEDS: ASPIRIN 81 MG PO SCH (20:06)
[2018-01-10] MEDS: IPRATROPIUM-ALBUTEROL 3 ML NEB INHALATION PRN (21:04)
[2018-01-11] MEDS: FUROSEMIDE 10 MG/ML 4 ML VIAL IV SCH (06:02)
[2018-01-11] MEDS: CARVEDILOL 3.125 MG TAB PO SCH (06:03)
[2018-01-11] MEDS: CHOLECALCIFEROL 1,000 UNIT TAB PO SCH (08:21)
[2018-01-11] MEDS: MAGNESIUM OXIDE 400 MG TAB PO SCH (08:22)
--- NOTE | 2018-01-11 09:59 | P.PN ---
Subjective Patient is doing well. He is sitting up comfortably in bed. No edema in the lower extremities no JVD no chest pain no dizziness lightheadedness palpitations. Rhythm is normal Yesterday his 2-D echo was done and it showed a dilated left ventricle with severely dysfunction but the patient is adamant he does not consume alcohol anymore. However clearly secondary to heart failure with systolic dysfunction On examination his blood pressure 153/84 milligrams mercury respirations are normal pulse rate in the 80s afebrile 97.2F Breath sounds are clear no rhonchi no crackles Heart sounds are normal no murmurs or gallops no rub Abdomen soft nontender extremities are warm no edema Impression Symptoms consistent with acute heart failure with severe LV systolic dysfunction most likely of a chronic nature but he do not have proof of this ejection fraction severely reduced Elevated blood pressure, hypertension Suggest Increase carvedilol to 6.25 mg twice daily Stop IV Lasix and switch to by mouth Lasix *Spironolactone 25 mg by mouth daily Atorvastatin 40 mg by mouth daily I would recommend proceeding with coronary angiography as an inpatient. Patient is stable from a cardiac vascular standpoint at this time Further recommendations thereafter I will see him in the office thereafter Objective - Vital Signs Vital signs: Vital Signs Temp 97.2 F L 01/11/18 08:00 Pulse 89 01/11/18 08:00 Resp 20 01/11/18 08:00 BP 153/84 01/11/18 08:00 Pulse Ox 97 01/11/18 08:00 Intake & Output 01/10/18 01/11/18 01/11/18 18:59 06:59 18:59 Intake Total 940 Output Total 450 1700 300 Balance 490 -1700 -300 Weight 103.2 kg Intake: Oral 940 Output: Urine 450 1700 300 Other: Voiding Method Urinal Urinal # Voids 1 5 - Labs CBC & Chem 7: 01/09/18 13:00 01/09/18 13:00 Labs: Abnormal Lab Results - Last 24 Hours (Table) 01/09/18 Range/Units 13:00 TSH 0.435 L (0.465-4.680) mIU/L Microbiology - Last 24 Hours (Table) 01/09/18 15:34 Blood Culture - Preliminary Blood No Growth after 24 hours
--- NOTE | 2018-01-11 10:26 | P.PN ---
Subjective Progress Note Date: 01/11/18 Gelacio Vásquez he is a 67-year-old male patient of Dr. Ward who presented to [facility] emergency room due to worsening shortness of breath he was evaluated in the emergency room his preliminary evaluation revealed evidence of acute congestive heart failure exacerbation with pulmonary edema, and patchy right lower lobe infiltrate suggestive of pneumonia with small bilateral pleural effusion he was started on IV Lasix and IV antibiotic and was admitted to telemetry floor. Patient denies ever being diagnosed with congestive heart failure, he denies having any heart attacks in the past he denies having any cardiac catheterization, he states that he had hypertension, hyperlipidemia, and insulin -dependent diabetes mellitus, he underwent extreme diet and lost more than 170 pounds, and stopped taking all his blood pressure medication and his insulin and has been doing well for the last 3 years, this is his first admission to the hospital in many years. He denies having any chest pain, right lower extremity was more swollen than the left in the emergency room, he underwent right lower extremity Doppler which was negative for DVT. BNP was elevated at 10,100 Patient was subsequently admitted to telemetry floor, he was started on oxygen supplement, and IV Lasix 40 mg every 8 hours, he was also started on IV Rocephin and IV Zithromax, sputum culture was ordered. On 01/10/2018 patient is feeling better he is alert and oriented in no apparent distress he is still having occasional cough without any sputum production he is having shortness of breath but significantly improved from before there is no chest pain no palpitation no dizziness no fever or chills no nausea or vomiting no abdominal pain no diarrhea and no urinary symptoms On 01/11/2018 patient is alert and oriented 3 he is sitting on the edge of his bed he has no chest pain or shortness of breath at the present time he gets some shortness of breath when trying to ambulate, otherwise he denies any symptoms, there is no fever or chills no headache no dizziness no chest pain or shortness of breath no cough no nausea or vomiting no abdominal pain and no urinary symptoms. Objective - Vital Signs Vital signs: Vital Signs Temp 97.2 F L 01/11/18 08:00 Pulse 89 01/11/18 08:00 Resp 20 01/11/18 08:00 BP 153/84 01/11/18 08:00 Pulse Ox 97 01/11/18 08:00 Intake & Output 01/10/18 01/11/18 01/11/18 18:59 06:59 18:59 Intake Total 940 Output Total 450 1700 300 Balance 490 -1700 -300 Weight 103.2 kg Intake: Oral 940 Output: Urine 450 1700 300 Other: Voiding Method Urinal Urinal Urinal # Voids 1 5 - Exam In general patient is alert and oriented 3 in no apparent distress HEENT head normocephalic and atraumatic Neck is supple no JVD no goiter no lymphadenopathy Chest exam reveals a few scattered crackles bilaterally no wheezing Cardiac exam reveals regular heart sounds no gallops no murmurs nor rubs Abdomen is soft nontender no organomegaly with normal bowel sounds Extremity exam reveals 1+ edema right worse than left no cyanosis or clubbing Neurological examination reveals no gross deficit - Labs CBC & Chem 7: 01/09/18 13:00 01/09/18 13:00 Labs: Abnormal Lab Results - Last 24 Hours (Table) 01/09/18 Range/Units 13:00 TSH 0.435 L (0.465-4.680) mIU/L Microbiology - Last 24 Hours (Table) 01/09/18 15:34 Blood Culture - Preliminary Blood No Growth after 24 hours Assessment and Plan Plan: #1 acute systolic congestive heart failure exacerbation echocardiogram is ordered, continue with IV Lasix echocardiogram done and revealed significant decrease in ejection fraction to 20% cardiology are following #2 right lower lobe infiltrate with small bilateral pleural effusions, started on IV Zithromax and IV Rocephin will check sputum culture will recheck chest x- ray in 1-2 days. Patient reevaluated today no evidence of any acute infiltrate no clinical evidence of pneumonia and antibiotics were discontinued. #3 previous history of hypertension blood pressure is mildly elevated on presentation, patient stopped all of his blood pressure medications 3 years ago will assess during this admission #4 previous history of insulin-dependent diabetes mellitus, patient lost 170 pounds about 3 years ago and stopped taking insulin, glucose on presentation 146 , will check hemoglobin A1c #5 abnormal EKG showing evidence of anterior VA possibly subacute to chronic patient denies ever having any chest pain or ever having any myocardial infarction no old EKG to compare, troponin 0.059, cardiology consultation was requested. Plan per cardiology is to proceed with cardiac catheterization as inpatient Medication and labs were reviewed please see orders will follow closely Radiology and pulmonary consultation also following
--- NOTE | 2018-01-11 11:30 | P.PN ---
Subjective Progress Note Date: 01/11/18 67-year-old male patient, presented to the emergency department with difficulty breathing of 3 weeks' duration. Has been expressing progressive exertional dyspnea orthopnea and some paroxysmal nocturnal dyspnea and lower extremity edema. No chest pain. No palpitation. No pleurisy. No hemoptysis. No fever chills or night sweats. No previous history of cardiac disease. He is an ex- smoker and quit smoking 3 years ago. He has a component of COPD. He does not utilize oxygen no refuses any form of respiratory medications or inhalers. He recalls a previous history of pneumonia with parapneumonic effusion requiring a chest tube insertion on the left. He comes into the hospital and he was found to have normal white count, normal renal function, significantly elevated proBNP level which is above 10,000. EKG showing left anterior fascicular block and Q waves over the anterior leads suggestive of an old OH. His cardiac mechanism is sinus. His chest x-ray shows CHF along with a right-sided pleural effusion. No weight loss. No other constitutional symptoms for now. No chest trauma. No pleurisy. The patient is living out of his trailer and he is moving to different states and he is about to move to [place] next week. Patient is seen again today 01/10/2018 in follow-up on the selective care unit. He is awake and alert in no acute distress. He is breathing a bit better today as compared to yesterday. He diuresed well and is currently in a negative balance. Chest x-ray revealed evidence of COPD, cardiomegaly and slight improvement in aeration of the right lung base. Bilateral pleural effusions right greater than left. Currently on Lasix 40 mg IV push every 12 hours. He was found to have severely impaired left ventricular systolic function with ejection fraction less than 20%. Cardiology is on the case as well. On 01/11/2018 the patient is improved and is not having any shortness of breath. He is currently off oxygen and he is on room air. As mentioned he was found to have severe cardiomyopathy and further workup will be needed to rule out the possibility of an underlying ischemic cardiomyopathy. The plan is to proceed with a cardiac catheterization in a.m. Meanwhile, the patient was started on a combination of Coreg, losartan and Aldactone. He is on oral Lasix 40 mg by mouth daily. Renal function is stable.. Blood work will be needed in terms of his follow-up creatinine prior to his cardiac catheterization. Objective - Vital Signs Vital signs: Vital Signs Temp 97.2 F L 01/11/18 08:00 Pulse 89 01/11/18 08:00 Resp 20 01/11/18 08:00 BP 153/84 01/11/18 08:00 Pulse Ox 97 01/11/18 08:00 Intake & Output 01/10/18 01/11/18 01/11/18 18:59 06:59 18:59 Intake Total 940 Output Total 450 1700 300 Balance 490 -1700 -300 Weight 103.2 kg Intake: Oral 940 Output: Urine 450 1700 300 Other: Voiding Method Urinal Urinal Urinal # Voids 1 5 - Exam Gen. appearance, comfortable likely distress Head exam was generally normal. There was no scleral icterus or corneal arcus. Mucous membranes were moist. Neck was supple and with jugular venous distension, thyromegaly, or carotid bruits. Carotids were easily palpable bilaterally. There was no adenopathy. Lungs sounds are diminished in the right lung base along with dullness to percussion the patient has bilateral basilar crackles with seems to have improved significantly Cardiac exam revealed the PMI to be normally situated and sized. The rhythm was regular and no extrasystoles were noted during several minutes of auscultation. The first and second heart sounds were normal and physiologic splitting of the second heart sound was noted. There were no murmurs, rubs, clicks, or gallops. Abdominal exam revealed normal bowel sounds. The abdomen was soft, non-tender, and without masses, organomegaly, or appreciable enlargement of the abdominal aorta. Examination of the extremities revealed easily palpable radial, femoral and pedal pulses. There was no cyanosis, clubbing and there is +1 pitting edema recovered on today's evaluation of the patient does not have any ongoing edema Examination of the skin revealed no evidence of significant rashes, suspicious appearing nevi or other concerning lesions. Neurologically awake and alert and there is no focal neurological deficit - Labs CBC & Chem 7: 01/09/18 13:00 01/09/18 13:00 Labs: Abnormal Lab Results - Last 24 Hours (Table) 01/09/18 Range/Units 13:00 TSH 0.435 L (0.465-4.680) mIU/L Microbiology - Last 24 Hours (Table) 01/09/18 15:34 Blood Culture - Preliminary Blood No Growth after 24 hours Assessment and Plan Plan: Assessment 1 acute heart failure with systolic dysfunction and ejection fraction of less than 20%. Rule out ischemic cardiomyopathy. The patient will be undergoing a cardiac catheterization in a.m. The patient presented with heart failure/ pulmonary edema and right-sided pleural effusion and is improved with medical treatment. 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 7 ex-smoker Plan Continue same treatment and cardiac catheterization the morning. We'll tag along with the case until the final results of the cardiac catheterization results. Will need a follow-up renal function prior to cardiac catheterization and contrast administration in a.m.
[2018-01-11] MEDS: LOSARTAN 25 MG TAB PO SCH (11:41)
[2018-01-11] MEDS: SPIRONOLACTONE 25 MG TAB PO SCH (11:42)
[2018-01-11] MEDS: CARVEDILOL 6.25 MG TAB PO SCH (16:27)
[2018-01-11] MEDS: ACETAMINOPHEN TAB 500 MG TAB PO PRN (16:27)
[2018-01-11] MEDS ORDERED: Potassium Replacement Protocol 1 EACH MISC MISCELLANE PRN (17:38)
[2018-01-11 17:47] LABS: Anion Gap 4 mmol/L; Blood Urea Nitrogen 23 mg/dL (9-20); Calcium 8.6 mg/dL (8.4-10.2); Carbon Dioxide 34 mmol/L (22-30); Chloride 99 mmol/L (98-107); Glucose 95 mg/dL (74-99); Potassium 4.7 mmol/L (3.5-5.1); Sodium 137 mmol/L (137-145)
[2018-01-11] MEDS: ASPIRIN 81 MG PO SCH (21:18)
[2018-01-12] MEDS: CARVEDILOL 6.25 MG TAB PO SCH ×2 (06:16→17:28)
[2018-01-12 06:22] LABS: Basophils % (A) 1 %; Eosinophils # (A) 0.4 k/uL (0-0.7); Eosinophils % (A) 8 %; HCT 40.6 % (39.0-53.0); HGB 12.7 gm/dL (13.0-17.5); Lymphocytes # (A) 1.8 k/uL (1.0-4.8); Lymphocytes % (A) 37 %; MCH 27.8 pg (25.0-35.0); MCHC 31.3 g/dL (31.0-37.0); MCV 88.9 fL (80.0-100.0); Monocytes # (A) 0.5 k/uL (0-1.0); Monocytes % (A) 10 %; Neutrophils # (A) 2.1 k/uL (1.3-7.7); Neutrophils % (A) 43 %; Platelet Count 188 k/uL (150-450); RBC 4.57 m/uL (4.30-5.90)
[2018-01-12 06:26] LABS: ALT 55 U/L (21-72); AST 30 U/L (17-59); Albumin 2.8 g/dL (3.5-5.0); Alkaline Phosphatase 62 U/L (38-126); Anion Gap 4 mmol/L; Blood Urea Nitrogen 20 mg/dL (9-20); Calcium 8.4 mg/dL (8.4-10.2); Carbon Dioxide 33 mmol/L (22-30); Chloride 101 mmol/L (98-107); Glucose 84 mg/dL (74-99); Potassium 4.4 mmol/L (3.5-5.1); Sodium 138 mmol/L (137-145); Total Bilirubin 0.6 mg/dL (0.2-1.3); Total Protein 5.3 g/dL (6.3-8.2)
[2018-01-12] MEDS: CHOLECALCIFEROL 1,000 UNIT TAB PO SCH ×2 (08:47→10:31)
[2018-01-12] MEDS: MAGNESIUM OXIDE 400 MG TAB PO SCH ×3 (08:48→10:32)
[2018-01-12] MEDS: LOSARTAN 25 MG TAB PO SCH (08:52)
[2018-01-12] MEDS: FUROSEMIDE 40 MG TAB PO SCH (10:31)
[2018-01-12] MEDS: SPIRONOLACTONE 25 MG TAB PO SCH (10:43)
[2018-01-12] MEDS ORDERED: ALPRAZolam 0.25 MG TAB PO PRN (10:52)
[2018-01-12] MEDS ORDERED: SODIUM CHLORIDE 0.9% 1,000 ML in EMPTY BAG 1 BAG IV ONE (10:52)
[2018-01-12] MEDS ORDERED: NITROGLYCERIN SL TABS 0.4 MG TAB SUBLINGUAL PRN (10:52)
[2018-01-12] MEDS ORDERED: ASPIRIN 325 MG TAB PO STA (10:54)
[2018-01-12] MEDS ORDERED: ATORVASTATIN 80 MG TAB PO STA (10:55)
--- NOTE | 2018-01-12 11:15 | P.PN ---
Subjective Progress Note Date: 01/12/18 Principal diagnosis: Acute exacerbation of systolic congestive heart failure. 67-year-old male patient, presented to the emergency department with difficulty breathing of 3 weeks' duration. Has been expressing progressive exertional dyspnea orthopnea and some paroxysmal nocturnal dyspnea and lower extremity edema. No chest pain. No palpitation. No pleurisy. No hemoptysis. No fever chills or night sweats. No previous history of cardiac disease. He is an ex- smoker and quit smoking 3 years ago. He has a component of COPD. He does not utilize oxygen no refuses any form of respiratory medications or inhalers. He recalls a previous history of pneumonia with parapneumonic effusion requiring a chest tube insertion on the left. He comes into the hospital and he was found to have normal white count, normal renal function, significantly elevated proBNP level which is above 10,000. EKG showing left anterior fascicular block and Q waves over the anterior leads suggestive of an old ID. His cardiac mechanism is sinus. His chest x-ray shows CHF along with a right-sided pleural effusion. No weight loss. No other constitutional symptoms for now. No chest trauma. No pleurisy. The patient is living out of his trailer and he is moving to different states and he is about to move to [place] next week. Patient is seen again today 01/10/2018 in follow-up on the selective care unit. He is awake and alert in no acute distress. He is breathing a bit better today as compared to yesterday. He diuresed well and is currently in a negative balance. Chest x-ray revealed evidence of COPD, cardiomegaly and slight improvement in aeration of the right lung base. Bilateral pleural effusions right greater than left. Currently on Lasix 40 mg IV push every 12 hours. He was found to have severely impaired left ventricular systolic function with ejection fraction less than 20%. Cardiology is on the case as well. On 01/11/2018 the patient is improved and is not having any shortness of breath. He is currently off oxygen and he is on room air. As mentioned he was found to have severe cardiomyopathy and further workup will be needed to rule out the possibility of an underlying ischemic cardiomyopathy. The plan is to proceed with a cardiac catheterization in a.m. Meanwhile, the patient was started on a combination of Coreg, losartan and Aldactone. He is on oral Lasix 40 mg by mouth daily. Renal function is stable.. Blood work will be needed in terms of his follow-up creatinine prior to his cardiac catheterization. The patient is seen today 01/12/2018 in follow-up on the selective care unit. He is currently awake and alert in no acute distress. He denies any worsening shortness of breath, cough or congestion. No chest pain or palpitations. He is maintaining O2 saturations in the mid 90s on room air. He's been afebrile. Hemodynamically stable. Blood and sputum cultures reveal no growth. White count 5.0. Hemoglobin 12.7. Creatinine 0.84. The plan is for cardiac catheterization perhaps today. Objective - Vital Signs Vital signs: Vital Signs Temp 96.3 F L 01/12/18 08:00 Pulse 82 01/12/18 08:00 Resp 14 01/12/18 08:00 BP 148/81 01/12/18 08:00 Pulse Ox 94 L 01/12/18 08:00 Intake & Output 01/11/18 01/12/18 01/12/18 18:59 06:59 18:59 Intake Total 480 137 200 Output Total 1200 Balance -720 137 200 Weight 100.8 kg Intake: Oral 480 137 200 Output: Urine 1200 Other: Voiding Method Urinal Urinal Urinal # Voids 0 1 1 - Exam Gen. appearance, comfortable likely distress Head exam was generally normal. There was no scleral icterus or corneal arcus. Mucous membranes were moist. Neck was supple and with jugular venous distension, thyromegaly, or carotid bruits. Carotids were easily palpable bilaterally. There was no adenopathy. Lungs sounds are diminished in the right lung base along with dullness to percussion the patient has bilateral basilar crackles right greater than left. Cardiac exam revealed the PMI to be normally situated and sized. The rhythm was regular and no extrasystoles were noted during several minutes of auscultation. The first and second heart sounds were normal and physiologic splitting of the second heart sound was noted. There were no murmurs, rubs, clicks, or gallops. Abdominal exam revealed normal bowel sounds. The abdomen was soft, non-tender, and without masses, organomegaly, or appreciable enlargement of the abdominal aorta. Examination of the extremities revealed easily palpable radial, femoral and pedal pulses. There was no cyanosis, clubbing and there is +1 pitting edema Examination of the skin revealed no evidence of significant rashes, suspicious appearing nevi or other concerning lesions. Neurologically awake and alert and there is no focal neurological deficit - Labs CBC & Chem 7: 01/12/18 05:25 01/12/18 05:25 Labs: Abnormal Lab Results - Last 24 Hours (Table) 01/11/18 01/12/18 01/12/18 Range/Units 17:08 05:25 05:25 Hgb 12.7 L (13.0-17.5) gm/dL Carbon Dioxide 34 H 33 H (22-30) mmol/L BUN 23 H (9-20) mg/dL Total Protein 5.3 L (6.3-8.2) g/dL Albumin 2.8 L (3.5-5.0) g/dL Microbiology - Last 24 Hours (Table) 01/11/18 08:30 Gram Stain - Preliminary Sputum Sputum Culture - Preliminary 01/09/18 15:34 Blood Culture - Preliminary Blood No Growth after 48 hours Assessment and Plan Assessment: Assessment 1 acute hypoxic respiratory failure secondary to an acute exacerbation of systolic congestive heart failure, new onset. Ejection fraction less than 20%. 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 7 ex-smoker Plan The patient was seen and evaluated by Dr. Coker. Patient has severely impaired left ventricular systolic function with ejection fraction less than 20%. Cardiology is following. The plan is for cardiac catheterization today. We'll continue to follow. I, the cosigning physician, performed a history & physical examination of the patient. Lungs sounds with crackles in the posterior bases right greater than left. Maintaining good O2 saturations in the 90s on room air. I discussed the assessment and plan of care with my nurse practitioner, Nitza Srinivasan. I attest to the above note as dictated by her.
--- NOTE | 2018-01-12 11:39 | P.PN ---
Subjective Progress Note Date: 01/12/18 Gelacio Vásquez he is a 67-year-old male patient of Dr. Ward who presented to [facility] emergency room due to worsening shortness of breath he was evaluated in the emergency room his preliminary evaluation revealed evidence of acute congestive heart failure exacerbation with pulmonary edema, and patchy right lower lobe infiltrate suggestive of pneumonia with small bilateral pleural effusion he was started on IV Lasix and IV antibiotic and was admitted to telemetry floor. Patient denies ever being diagnosed with congestive heart failure, he denies having any heart attacks in the past he denies having any cardiac catheterization, he states that he had hypertension, hyperlipidemia, and insulin -dependent diabetes mellitus, he underwent extreme diet and lost more than 170 pounds, and stopped taking all his blood pressure medication and his insulin and has been doing well for the last 3 years, this is his first admission to the hospital in many years. He denies having any chest pain, right lower extremity was more swollen than the left in the emergency room, he underwent right lower extremity Doppler which was negative for DVT. BNP was elevated at 10,100 Patient was subsequently admitted to telemetry floor, he was started on oxygen supplement, and IV Lasix 40 mg every 8 hours, he was also started on IV Rocephin and IV Zithromax, sputum culture was ordered. On 01/10/2018 patient is feeling better he is alert and oriented in no apparent distress he is still having occasional cough without any sputum production he is having shortness of breath but significantly improved from before there is no chest pain no palpitation no dizziness no fever or chills no nausea or vomiting no abdominal pain no diarrhea and no urinary symptoms On 01/11/2018 patient is alert and oriented 3 he is sitting on the edge of his bed he has no chest pain or shortness of breath at the present time he gets some shortness of breath when trying to ambulate, otherwise he denies any symptoms, there is no fever or chills no headache no dizziness no chest pain or shortness of breath no cough no nausea or vomiting no abdominal pain and no urinary symptoms. 01/12/2018 patient is scheduled for heart catheterization tomorrow. He is complaining of his sinus congestion acting up. He usually takes Benadryl at home and requesting that this is restarted. Patient denies any chest pain or shortness of breath. He did have a slight cough to clear his postnasal drip. Denies any fever chills or sweats. Denies any nausea vomiting bowel movement changes or urinary symptoms. Objective - Vital Signs Vital signs: Vital Signs Temp 96.3 F L 01/12/18 08:00 Pulse 82 01/12/18 08:00 Resp 14 01/12/18 08:00 BP 148/81 01/12/18 08:00 Pulse Ox 94 L 01/12/18 08:00 Intake & Output 01/11/18 01/12/18 01/12/18 18:59 06:59 18:59 Intake Total 480 137 200 Output Total 1200 Balance -720 137 200 Weight 100.8 kg Intake: Oral 480 137 200 Output: Urine 1200 Other: Voiding Method Urinal Urinal Urinal # Voids 0 1 1 - Exam Head normocephalic Neck supple Lungs clear to auscultation bilaterally no wheezing or crackles Heart regular rate and rhythm S1-S2, no rub or gallop Abdomen is soft nontender nondistended positive bowel sounds no hepatosplenomegaly Extremities trace edema bilateral lower extremities Neuro alert and orientated to 3 - Labs CBC & Chem 7: 01/12/18 05:25 01/12/18 05:25 Labs: Abnormal Lab Results - Last 24 Hours (Table) 01/11/18 01/12/18 01/12/18 Range/Units 17:08 05:25 05:25 Hgb 12.7 L (13.0-17.5) gm/dL Carbon Dioxide 34 H 33 H (22-30) mmol/L BUN 23 H (9-20) mg/dL Total Protein 5.3 L (6.3-8.2) g/dL Albumin 2.8 L (3.5-5.0) g/dL Microbiology - Last 24 Hours (Table) 01/11/18 08:30 Gram Stain - Preliminary Sputum Sputum Culture - Preliminary 01/09/18 15:34 Blood Culture - Preliminary Blood No Growth after 48 hours Assessment and Plan Assessment: #1 acute systolic congestive heart failure exacerbation: echocardiogram done and revealed significant decrease in ejection fraction to 20% cardiology are following. They're planning for heart catheterization tomorrow. Currently on Lasix 40 mg by mouth daily started today #2 right lower lobe infiltrate with small bilateral pleural effusions, started on IV Zithromax and IV Rocephin will check sputum culture will recheck chest x- ray in 1-2 days. Patient reevaluated today no evidence of any acute infiltrate no clinical evidence of pneumonia and antibiotics were discontinued. #3 previous history of hypertension blood pressure is mildly elevated on presentation, patient stopped all of his blood pressure medications 3 years ago will assess during this admission #4 previous history of insulin-dependent diabetes mellitus, patient lost 170 pounds about 3 years ago and stopped taking insulin, glucose on presentation 146 , will check hemoglobin A1c #5 abnormal EKG showing evidence of anterior LA possibly subacute to chronic patient denies ever having any chest pain or ever having any myocardial infarction no old EKG to compare, troponin 0.059, cardiology consultation was requested. Plan per cardiology is to proceed with cardiac catheterization as inpatient #6 seasonal ALLERGIES: Resume patient's home Benadryl I performed an examination of the patient and discussed their management with the physician Manager Of Global. I have reviewed the Physician Manager Of Global's notes and agree with the documented findings and plan of care
[2018-01-12] MEDS: diphenhydrAMINE 50 MG CAP PO SCH ×3 (14:12→21:03)
--- NOTE | 2018-01-12 15:47 | P.PN ---
Subjective Progress Note Date: 01/12/18 67-year-old male patient, presented to the emergency department with difficulty breathing of 3 weeks' duration. Has been expressing progressive exertional dyspnea orthopnea and some paroxysmal nocturnal dyspnea and lower extremity edema. No chest pain. No palpitation. No pleurisy. No hemoptysis. No fever chills or night sweats. No previous history of cardiac disease. He is an ex- smoker and quit smoking 3 years ago. Patient was diuresed on IV Lasix, and is on oral diuretics at this time. He is awake today, in no acute distress. No chest pain or palpitations. Hemodynamically stable. Patient will be scheduled morning undergo cardiac catheterization with Dr. Parkinson, the risks and benefits were explained to the patient in detail and he is willing to proceed. Objective - Vital Signs Vital signs: Vital Signs Temp 97.1 F L 01/12/18 12:00 Pulse 82 01/12/18 12:00 Resp 16 01/12/18 12:00 BP 139/91 01/12/18 12:00 Pulse Ox 95 01/12/18 12:00 Intake & Output 01/11/18 01/12/18 01/12/18 18:59 06:59 18:59 Intake Total 480 137 400 Output Total 1200 Balance -720 137 400 Weight 100.8 kg Intake: Oral 480 137 400 Output: Urine 1200 Other: Voiding Method Urinal Urinal Urinal # Voids 0 1 1 - Exam Head exam was generally normal. There was no scleral icterus or corneal arcus. Mucous membranes were moist. Neck was supple and with jugular venous distension, thyromegaly, or carotid bruits. Carotids were easily palpable bilaterally. There was no adenopathy. Lungs sounds are diminished in the right lung base along with dullness to percussion the patient has bilateral basilar crackles right greater than left. Cardiac exam revealed the PMI to be normally situated and sized. The rhythm was regular and no extrasystoles were noted during several minutes of auscultation. The first and second heart sounds were normal and physiologic splitting of the second heart sound was noted. There were no murmurs, rubs, clicks, or gallops. Abdominal exam revealed normal bowel sounds. The abdomen was soft, non-tender, and without masses, organomegaly, or appreciable enlargement of the abdominal aorta. Examination of the extremities revealed easily palpable radial, femoral and pedal pulses. There was no cyanosis, clubbing and there is +1 pitting edema Examination of the skin revealed no evidence of significant rashes, suspicious appearing nevi or other concerning lesions. Neurologically awake and alert and there is no focal neurological deficit - Labs CBC & Chem 7: 01/12/18 05:25 01/12/18 05:25 Labs: Abnormal Lab Results - Last 24 Hours (Table) 01/11/18 01/12/18 01/12/18 Range/Units 17:08 05:25 05:25 Hgb 12.7 L (13.0-17.5) gm/dL Carbon Dioxide 34 H 33 H (22-30) mmol/L BUN 23 H (9-20) mg/dL Total Protein 5.3 L (6.3-8.2) g/dL Albumin 2.8 L (3.5-5.0) g/dL Microbiology - Last 24 Hours (Table) 01/11/18 08:30 Gram Stain - Preliminary Sputum Sputum Culture - Preliminary 01/09/18 15:34 Blood Culture - Preliminary Blood No Growth after 48 hours Assessment and Plan Plan: Assessment 1 acute hypoxic respiratory failure secondary to an acute exacerbation of systolic congestive heart failure, new onset. Ejection fraction less than 20%. 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 7 ex-smoker Plan Patient will be scheduled tomorrow to undergo cardiac catheterization, the risks and benefits were explained to the patient in detail. The saphenous performed tomorrow by Dr. Parkinson. DNP note has been reviewed, I agree with a documented findings and plan of care. Patient was seen and examined.
[2018-01-12] MEDS: HEPARIN SODIUM,PORCINE 5,000 UNIT/ML 1 ML VIAL SQ SCH (21:03)
[2018-01-13 06:13] LABS: Basophils % (A) 0 %; Eosinophils # (A) 0.3 k/uL (0-0.7); Eosinophils % (A) 6 %; HCT 39.8 % (39.0-53.0); HGB 12.9 gm/dL (13.0-17.5); Lymphocytes # (A) 1.6 k/uL (1.0-4.8); Lymphocytes % (A) 36 %; MCHC 32.5 g/dL (31.0-37.0); MCV 89.1 fL (80.0-100.0); Mean Platelet Volume 8.2; Monocytes # (A) 0.4 k/uL (0-1.0); Monocytes % (A) 9 %; Neutrophils # (A) 2.1 k/uL (1.3-7.7); Neutrophils % (A) 46 %; Platelet Count 178 k/uL (150-450); RBC 4.47 m/uL (4.30-5.90); RDW 14.1 % (11.5-15.5); WBC 4.6 k/uL (3.8-10.6)
[2018-01-13 06:32] LABS: ALT 56 U/L (21-72); AST 27 U/L (17-59); Albumin 2.8 g/dL (3.5-5.0); Alkaline Phosphatase 62 U/L (38-126); Anion Gap 2 mmol/L; Blood Urea Nitrogen 26 mg/dL (9-20); Calcium 8.4 mg/dL (8.4-10.2); Carbon Dioxide 32 mmol/L (22-30); Chloride 103 mmol/L (98-107); Glucose 87 mg/dL (74-99); Potassium 4.4 mmol/L (3.5-5.1); Sodium 137 mmol/L (137-145); Total Bilirubin 0.5 mg/dL (0.2-1.3); Total Protein 5.2 g/dL (6.3-8.2)
[2018-01-13] MEDS: CARVEDILOL 6.25 MG TAB PO SCH ×2 (06:48→17:18)
[2018-01-13] MEDS: LOSARTAN 25 MG TAB PO SCH (06:49)
[2018-01-13] MEDS: HEPARIN SODIUM,PORCINE 5,000 UNIT/ML 1 ML VIAL SQ SCH ×2 (06:49→20:09)
[2018-01-13] MEDS: diphenhydrAMINE 50 MG CAP PO SCH ×3 (06:49→21:43)
[2018-01-13] MEDS ORDERED: LIDOCAINE 1% INJ 10MG/ML (20 ML MDV) ONE (08:36)
[2018-01-13] MEDS ORDERED: fentaNYL (PF) 50 MCG/ML 2 ML AMP ONE (08:44)
[2018-01-13] MEDS ORDERED: MIDAZOLAM 2 MG/2 ML VIAL ONE (08:44)
[2018-01-13] MEDS ORDERED: IV FLUID CONTINUATION 1,000 ML IV ONE (08:48)
[2018-01-13] MEDS ORDERED: fentaNYL (PF) 50 MCG/ML 2 ML AMP IVP ONE (08:49)
[2018-01-13] MEDS ORDERED: MIDAZOLAM 2 MG/2 ML VIAL IVP ONE (08:49)
[2018-01-13] MEDS ORDERED: LIDOCAINE 1% INJ 10MG/ML (20 ML MDV) SQ ONE (08:52)
[2018-01-13] MEDS: SPIRONOLACTONE 25 MG TAB PO SCH (09:22)
[2018-01-13] MEDS: FUROSEMIDE 40 MG TAB PO SCH (09:22)
[2018-01-13] MEDS ORDERED: IOPAMIDOL-370 50ML BTL INJ ONE (09:24)
[2018-01-13] MEDS ORDERED: IOPAMIDOL-370 125ML BTL INJ ONE (09:24)
[2018-01-13] MEDS: SODIUM CHLORIDE 0.9% 1,000 ML IV SCH ×2 (09:30→21:44)
[2018-01-13] MEDS ORDERED: RX INFO: IV CONTRAST WAS GIVEN 1 EACH MISC MISCELLANE PRN (09:31)
--- NOTE | 2018-01-13 09:39 | P.CARDCATH ---
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 A cardiac catheterization requested to rule out underlying ischemic heart disease. CONSENT:I have discussed the risks, benefits and alternative therapies for the above-mentioned procedure and for both sedation/analgesia as well as necessary blood product administration, if indicated, as they pertain to this patient. The patient has indicated understanding and acceptance of the risks and procedures discussed. PROCEDURE: Patient was brought to the lab in a fasting state. Patient was given some IV sedation. The right groin is infiltrated with lidocaine and right femoral artery was entered using Seldinger technique. A 6-[place] catheter was left in place and selective coronary arteriography and left ventriculography was performed. Patient tolerated the procedure well. Femoral angiogram was performed and Angio-Seal was applied for hemostasis. No immediate complications were noted and patient was transferred to [facility] in a stable condition Conscious Sedation: Versed 1mg Fentanyl 25 g Duration 35minutes HEMODYNAMICS: Aortic pressure is about 110/70. Left ankle end-diastolic pressure is 20. There was no gradient across the aortic valve SELECTIVE CORONARY ARTERIOGRAPHY: LEFT MAIN: There is no left main coronary artery. Left circumflex is was negative from the right coronary cusp. THE LEFT ANTERIOR DESCENDING CORONARY ARTERY: This is a good caliber vessel giving rise to good-sized diagonal branch and septal branches. This vessel is free of occlusive disease THE LEFT CIRCUMFLEX AND IS CORONARY ARTERY:. This is ectopic in origin coming from the right coronary cusp seemed to be coursing anteriorly. Gives rise good-sized OM branch. Free of any occlusive disease THE RIGHT CORONARY ARTERY:. This is a good caliber vessel, denies good-sized PDA and PLV branches. Nondominant in nature. Mild ectasia and plaque noted. No significant obstructive disease LEFT VENTRICULOGRAPHY: Not performed AORTIC ROOT INJECTION: This was performed in the left anterior oblique projection. This revealed mildly dilated aortic root without evidence of aortic regurgitation. 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 PLAN: Continued medical therapy and risk factor modification PROGNOSIS:. Fair
--- NOTE | 2018-01-13 14:33 | P.PN ---
Subjective Progress Note Date: 01/13/18 Principal diagnosis: Acute exacerbation of systolic congestive heart failure 67-year-old male patient, presented to the emergency department with difficulty breathing of 3 weeks' duration. Has been expressing progressive exertional dyspnea orthopnea and some paroxysmal nocturnal dyspnea and lower extremity edema. No chest pain. No palpitation. No pleurisy. No hemoptysis. No fever chills or night sweats. No previous history of cardiac disease. He is an ex- smoker and quit smoking 3 years ago. He has a component of COPD. He does not utilize oxygen no refuses any form of respiratory medications or inhalers. He recalls a previous history of pneumonia with parapneumonic effusion requiring a chest tube insertion on the left. He comes into the hospital and he was found to have normal white count, normal renal function, significantly elevated proBNP level which is above 10,000. EKG showing left anterior fascicular block and Q waves over the anterior leads suggestive of an old MO. His cardiac mechanism is sinus. His chest x-ray shows CHF along with a right-sided pleural effusion. No weight loss. No other constitutional symptoms for now. No chest trauma. No pleurisy. The patient is living out of his trailer and he is moving to different states and he is about to move to [place] next week. Patient is seen again today 01/10/2018 in follow-up on the selective care unit. He is awake and alert in no acute distress. He is breathing a bit better today as compared to yesterday. He diuresed well and is currently in a negative balance. Chest x-ray revealed evidence of COPD, cardiomegaly and slight improvement in aeration of the right lung base. Bilateral pleural effusions right greater than left. Currently on Lasix 40 mg IV push every 12 hours. He was found to have severely impaired left ventricular systolic function with ejection fraction less than 20%. Cardiology is on the case as well. On 01/11/2018 the patient is improved and is not having any shortness of breath. He is currently off oxygen and he is on room air. As mentioned he was found to have severe cardiomyopathy and further workup will be needed to rule out the possibility of an underlying ischemic cardiomyopathy. The plan is to proceed with a cardiac catheterization in a.m. Meanwhile, the patient was started on a combination of Coreg, losartan and Aldactone. He is on oral Lasix 40 mg by mouth daily. Renal function is stable.. Blood work will be needed in terms of his follow-up creatinine prior to his cardiac catheterization. The patient is seen today 01/12/2018 in follow-up on the selective care unit. He is currently awake and alert in no acute distress. He denies any worsening shortness of breath, cough or congestion. No chest pain or palpitations. He is maintaining O2 saturations in the mid 90s on room air. He's been afebrile. Hemodynamically stable. Blood and sputum cultures reveal no growth. White count 5.0. Hemoglobin 12.7. Creatinine 0.84. The plan is for cardiac catheterization perhaps today. Reevaluated today on 01/13/2018, patient had his cardiac catheterization, no evidence of any significant coronary artery disease. Hence his cardiomyopathy is nonischemic in nature. Patient is doing well post cardiac cath, presently asymptomatic. And he will likely be discharged on multiple cardiac meds for his nonischemic cardiomyopathy and will eventually require an AICD placement. Presently no cough no wheezing no shortness of breath no chest pain. Labs including CBC and basic metabolic profile are noted to be normal. Objective - Vital Signs Vital signs: Vital Signs Temp 97.5 F L 01/13/18 12:00 Pulse 87 01/13/18 14:14 Resp 15 01/13/18 14:14 BP 169/86 01/13/18 14:14 Pulse Ox 93 L 01/13/18 14:14 Intake & Output 01/12/18 01/13/18 01/13/18 18:59 06:59 18:59 Intake Total 844 137 340 Output Total 225 Balance 844 137 115 Weight 100.4 kg 100.4 kg Intake: IV 100 Oral 844 137 240 Output: Urine 225 Other: Voiding Method Urinal Toilet Toilet Urinal Urinal # Voids 2 1 1 # Bowel Movements 0 0 - Exam Gen. appearance, comfortable likely distress Head exam was generally normal. There was no scleral icterus or corneal arcus. Mucous membranes were moist. Neck was supple and with jugular venous distension, thyromegaly, or carotid bruits. Carotids were easily palpable bilaterally. There was no adenopathy. Lungs sounds are diminished in the right lung base along with dullness to percussion the patient has bilateral basilar crackles right greater than left. Cardiac exam revealed the PMI to be normally situated and sized. The rhythm was regular and no extrasystoles were noted during several minutes of auscultation. The first and second heart sounds were normal and physiologic splitting of the second heart sound was noted. There were no murmurs, rubs, clicks, or gallops. Abdominal exam revealed normal bowel sounds. The abdomen was soft, non-tender, and without masses, organomegaly, or appreciable enlargement of the abdominal aorta. Examination of the extremities revealed easily palpable radial, femoral and pedal pulses. There was no cyanosis, clubbing and there is +1 pitting edema Examination of the skin revealed no evidence of significant rashes, suspicious appearing nevi or other concerning lesions. Neurologically awake and alert and there is no focal neurological deficit - Labs CBC & Chem 7: 01/13/18 05:28 01/13/18 05:28 Labs: Abnormal Lab Results - Last 24 Hours (Table) 01/13/18 01/13/18 Range/Units 05:28 05:28 Hgb 12.9 L (13.0-17.5) gm/dL Carbon Dioxide 32 H (22-30) mmol/L BUN 26 H (9-20) mg/dL Total Protein 5.2 L (6.3-8.2) g/dL Albumin 2.8 L (3.5-5.0) g/dL Microbiology - Last 24 Hours (Table) 01/11/18 08:30 Gram Stain - Final Sputum Sputum Culture - Final Ella albicans 01/09/18 15:34 Blood Culture - Preliminary Blood No Growth after 72 hours Assessment and Plan Assessment: 1 acute hypoxic respiratory failure secondary to an acute exacerbation of systolic congestive heart failure, new onset. Ejection fraction less than 20%. 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 7 ex-smoker Recommendation: Considering the patient has a normal cardiac catheterization, this means that his cardiomyopathy is nonischemic in nature. May eventually require AICD placement. Continue treatment plan as per cardiology, we'll follow the patient on when necessary basis. Time with Patient: Less than 30
--- NOTE | 2018-01-13 15:00 | P.PN ---
Subjective Progress Note Date: 01/13/18 Gelacio Vásquez he is a 67-year-old male patient of Dr. Ward who presented to [facility] emergency room due to worsening shortness of breath he was evaluated in the emergency room his preliminary evaluation revealed evidence of acute congestive heart failure exacerbation with pulmonary edema, and patchy right lower lobe infiltrate suggestive of pneumonia with small bilateral pleural effusion he was started on IV Lasix and IV antibiotic and was admitted to telemetry floor. Patient denies ever being diagnosed with congestive heart failure, he denies having any heart attacks in the past he denies having any cardiac catheterization, he states that he had hypertension, hyperlipidemia, and insulin -dependent diabetes mellitus, he underwent extreme diet and lost more than 170 pounds, and stopped taking all his blood pressure medication and his insulin and has been doing well for the last 3 years, this is his first admission to the hospital in many years. He denies having any chest pain, right lower extremity was more swollen than the left in the emergency room, he underwent right lower extremity Doppler which was negative for DVT. BNP was elevated at 10,100 Patient was subsequently admitted to telemetry floor, he was started on oxygen supplement, and IV Lasix 40 mg every 8 hours, he was also started on IV Rocephin and IV Zithromax, sputum culture was ordered. On 01/10/2018 patient is feeling better he is alert and oriented in no apparent distress he is still having occasional cough without any sputum production he is having shortness of breath but significantly improved from before there is no chest pain no palpitation no dizziness no fever or chills no nausea or vomiting no abdominal pain no diarrhea and no urinary symptoms On 01/11/2018 patient is alert and oriented 3 he is sitting on the edge of his bed he has no chest pain or shortness of breath at the present time he gets some shortness of breath when trying to ambulate, otherwise he denies any symptoms, there is no fever or chills no headache no dizziness no chest pain or shortness of breath no cough no nausea or vomiting no abdominal pain and no urinary symptoms. 01/12/2018 patient is scheduled for heart catheterization tomorrow. He is complaining of his sinus congestion acting up. He usually takes Benadryl at home and requesting that this is restarted. Patient denies any chest pain or shortness of breath. He did have a slight cough to clear his postnasal drip. Denies any fever chills or sweats. Denies any nausea vomiting bowel movement changes or urinary symptoms. 01/13/2018 patient underwent heart catheterization today showed normal coronary arteries with ectopic circumflex. Patient has a known cardiomyopathy EF 20% which is new for patient. Cardiology is following closely. Awaiting their further recommendations. Patient is lying in bed comfortably denies any chest pain or shortness of breath. Denies any nausea or vomiting. Denies any bowel movement changes or urinary symptoms. Objective - Vital Signs Vital signs: Vital Signs Temp 97.5 F L 01/13/18 12:00 Pulse 87 01/13/18 14:14 Resp 15 01/13/18 14:14 BP 169/86 01/13/18 14:14 Pulse Ox 93 L 01/13/18 14:14 Intake & Output 01/12/18 01/13/18 01/13/18 18:59 06:59 18:59 Intake Total 844 137 340 Output Total 225 Balance 844 137 115 Weight 100.4 kg 100.4 kg Intake: IV 100 Oral 844 137 240 Output: Urine 225 Other: Voiding Method Urinal Toilet Toilet Urinal Urinal # Voids 2 1 1 # Bowel Movements 0 0 - Exam Head normocephalic Neck supple Lungs clear to auscultation bilaterally no wheezing or crackles Heart regular rate and rhythm S1-S2, no rub or gallop Abdomen is soft nontender nondistended positive bowel sounds no hepatosplenomegaly Extremities trace edema bilateral lower extremities Neuro alert and orientated to 3 - Labs CBC & Chem 7: 01/13/18 05:28 01/13/18 05:28 Labs: Abnormal Lab Results - Last 24 Hours (Table) 01/13/18 01/13/18 Range/Units 05:28 05:28 Hgb 12.9 L (13.0-17.5) gm/dL Carbon Dioxide 32 H (22-30) mmol/L BUN 26 H (9-20) mg/dL Total Protein 5.2 L (6.3-8.2) g/dL Albumin 2.8 L (3.5-5.0) g/dL Microbiology - Last 24 Hours (Table) 01/11/18 08:30 Gram Stain - Final Sputum Sputum Culture - Final Ella albicans 01/09/18 15:34 Blood Culture - Preliminary Blood No Growth after 72 hours Assessment and Plan Assessment: #1 acute systolic congestive heart failure exacerbation: echocardiogram done and revealed significant decrease in ejection fraction to 20% cardiology are following. Continue Lasix 40 mg by mouth daily #2 right lower lobe infiltrate with small bilateral pleural effusions noted on admission. Repeat chest x-ray no evidence of any acute infiltrate no clinical evidence of pneumonia and antibiotics were discontinued. #3 previous history of hypertension blood pressure is mildly elevated on presentation, patient stopped all of his blood pressure medications 3 years ago will assess during this admission #4 previous history of insulin-dependent diabetes mellitus, patient lost 170 pounds about 3 years ago and stopped taking insulin, glucose on presentation 146 , A1c 4.8. 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 Patient seen by cardiology #6 cardiomyopathy likely nonischemic since cath is clear. EF 20% on echo. Await cardiology recommendations. #7 seasonal ALLERGIES: Improved with Benadryl I performed an examination of the patient and discussed their management with the physician Pants Cutter. I have reviewed the Physician Pants Cutter's notes and agree with the documented findings and plan of care
[2018-01-13] MEDS: ACETAMINOPHEN TAB 500 MG TAB PO PRN (19:00)
[2018-01-13] MEDS: ASPIRIN 81 MG PO SCH (20:09)
[2018-01-13] MEDS: ALPRAZolam 0.5 MG TAB PO PRN (20:20)
[2018-01-13] MEDS: IPRATROPIUM-ALBUTEROL 3 ML NEB INHALATION PRN (20:21)
[2018-01-14] MEDS: ALPRAZolam 0.5 MG TAB PO PRN ×2 (03:43→21:42)
[2018-01-14] MEDS: CARVEDILOL 6.25 MG TAB PO SCH ×2 (06:31→17:18)
[2018-01-14 06:50] LABS: Basophils % (A) 1 %; Eosinophils # (A) 0.1 k/uL (0-0.7); Eosinophils % (A) 2 %; HCT 42.2 % (39.0-53.0); HGB 12.9 gm/dL (13.0-17.5); Hypochromasia Slight; Lymphocytes # (A) 1.5 k/uL (1.0-4.8); Lymphocytes % (A) 25 %; MCH 27.9 pg (25.0-35.0); MCHC 30.5 g/dL (31.0-37.0); MCV 91.6 fL (80.0-100.0); Mean Platelet Volume 7.5; Monocytes # (A) 0.3 k/uL (0-1.0); Monocytes % (A) 6 %; Neutrophils # (A) 3.9 k/uL (1.3-7.7); Neutrophils % (A) 65 %; Platelet Count 171 k/uL (150-450); RBC 4.61 m/uL (4.30-5.90); WBC 5.9 k/uL (3.8-10.6)
[2018-01-14 07:05] LABS: ALT 59 U/L (21-72); AST 32 U/L (17-59); Albumin 2.8 g/dL (3.5-5.0); Alkaline Phosphatase 61 U/L (38-126); Anion Gap 3 mmol/L; Blood Urea Nitrogen 26 mg/dL (9-20); Calcium 8.2 mg/dL (8.4-10.2); Carbon Dioxide 30 mmol/L (22-30); Chloride 105 mmol/L (98-107); Glucose 109 mg/dL (74-99); Potassium 4.7 mmol/L (3.5-5.1); Sodium 138 mmol/L (137-145); Total Bilirubin 0.5 mg/dL (0.2-1.3); Total Protein 5.2 g/dL (6.3-8.2)
[2018-01-14] MEDS: LOSARTAN 25 MG TAB PO SCH (08:48)
[2018-01-14] MEDS: CHOLECALCIFEROL 1,000 UNIT TAB PO SCH (08:48)
[2018-01-14] MEDS: SPIRONOLACTONE 25 MG TAB PO SCH (08:48)
[2018-01-14] MEDS: diphenhydrAMINE 50 MG CAP PO SCH ×3 (08:48→21:42)
[2018-01-14] MEDS: FUROSEMIDE 40 MG TAB PO SCH (08:48)
[2018-01-14] MEDS: HEPARIN SODIUM,PORCINE 5,000 UNIT/ML 1 ML VIAL SQ SCH ×2 (08:48→20:24)
[2018-01-14] MEDS: SODIUM CHLORIDE 0.9% 1,000 ML IV SCH (14:10)
--- NOTE | 2018-01-14 14:44 | P.PN ---
Subjective Progress Note Date: 01/14/18 Gelacio Vásquez he is a 67-year-old male patient of Dr. Ward who presented to [facility] emergency room due to worsening shortness of breath he was evaluated in the emergency room his preliminary evaluation revealed evidence of acute congestive heart failure exacerbation with pulmonary edema, and patchy right lower lobe infiltrate suggestive of pneumonia with small bilateral pleural effusion he was started on IV Lasix and IV antibiotic and was admitted to telemetry floor. Patient denies ever being diagnosed with congestive heart failure, he denies having any heart attacks in the past he denies having any cardiac catheterization, he states that he had hypertension, hyperlipidemia, and insulin -dependent diabetes mellitus, he underwent extreme diet and lost more than 170 pounds, and stopped taking all his blood pressure medication and his insulin and has been doing well for the last 3 years, this is his first admission to the hospital in many years. He denies having any chest pain, right lower extremity was more swollen than the left in the emergency room, he underwent right lower extremity Doppler which was negative for DVT. BNP was elevated at 10,100 Patient was subsequently admitted to telemetry floor, he was started on oxygen supplement, and IV Lasix 40 mg every 8 hours, he was also started on IV Rocephin and IV Zithromax, sputum culture was ordered. On 01/10/2018 patient is feeling better he is alert and oriented in no apparent distress he is still having occasional cough without any sputum production he is having shortness of breath but significantly improved from before there is no chest pain no palpitation no dizziness no fever or chills no nausea or vomiting no abdominal pain no diarrhea and no urinary symptoms On 01/11/2018 patient is alert and oriented 3 he is sitting on the edge of his bed he has no chest pain or shortness of breath at the present time he gets some shortness of breath when trying to ambulate, otherwise he denies any symptoms, there is no fever or chills no headache no dizziness no chest pain or shortness of breath no cough no nausea or vomiting no abdominal pain and no urinary symptoms. 01/12/2018 patient is scheduled for heart catheterization tomorrow. He is complaining of his sinus congestion acting up. He usually takes Benadryl at home and requesting that this is restarted. Patient denies any chest pain or shortness of breath. He did have a slight cough to clear his postnasal drip. Denies any fever chills or sweats. Denies any nausea vomiting bowel movement changes or urinary symptoms. 01/13/2018 patient underwent heart catheterization today showed normal coronary arteries with ectopic circumflex. Patient has a known cardiomyopathy EF 20% which is new for patient. Cardiology is following closely. Awaiting their further recommendations. Patient is lying in bed comfortably denies any chest pain or shortness of breath. Denies any nausea or vomiting. Denies any bowel movement changes or urinary symptoms. On 01/14/2018 patient is currently alert and oriented 3 resting comfortably in bed. Patient states that he had a bit of anxiety last night due to family issues. Episode was relieved with Xanax. Discussed case with Jessica per cardiology. Patient will be discharged home with life vest. LifeVest will likely not be available until tomorrow. Patient okay with being discharged tomorrow once LifeVest is available. Patient denies chest pain or shortness breath denies nausea vomiting or diarrhea. Sputum positive for Ella Albicans , Difluca has been added Objective - Vital Signs Vital signs: Vital Signs Temp 97.1 F L 01/14/18 12:00 Pulse 72 01/14/18 12:00 Resp 16 01/14/18 12:00 BP 121/75 01/14/18 12:00 Pulse Ox 96 01/14/18 12:00 Intake & Output 01/13/18 01/14/18 01/14/18 18:59 06:59 18:59 Intake Total 577 810 490 Output Total 225 Balance 352 810 490 Weight 100.4 kg 103 kg Intake: IV 100 810 10 Invasive Line 2 10 10 Sodium Chloride 0.9% 1, 600 000 ml @ 75 mls/hr IV . [id number] [facility] Rx#:[id number] Sodium Chloride 0.9% @ 20 200 ml/hr Oral 477 480 Output: Urine 225 Other: Voiding Method Toilet Toilet Toilet Urinal Urinal Urinal # Voids 1 2 # Bowel Movements 0 - Exam Head normocephalic Neck supple Lungs clear to auscultation bilaterally no wheezing or crackles Heart regular rate and rhythm S1-S2, no rub or gallop Abdomen is soft nontender nondistended positive bowel sounds no hepatosplenomegaly Extremities no edema Neuro alert and orientated to 3 - Labs CBC & Chem 7: 01/14/18 05:37 01/14/18 05:37 Labs: Abnormal Lab Results - Last 24 Hours (Table) 01/14/18 01/14/18 Range/Units 05:37 05:37 Hgb 12.9 L (13.0-17.5) gm/dL MCHC 30.5 L (31.0-37.0) g/dL BUN 26 H (9-20) mg/dL Glucose 109 H (74-99) mg/dL Calcium 8.2 L (8.4-10.2) mg/dL Total Protein 5.2 L (6.3-8.2) g/dL Albumin 2.8 L (3.5-5.0) g/dL Microbiology - Last 24 Hours (Table) 01/09/18 15:34 Blood Culture - Preliminary Blood No Growth after 96 hours Assessment and Plan Assessment: #1 acute systolic congestive heart failure exacerbation: echocardiogram done and revealed significant decrease in ejection fraction to 20% cardiology are following. Continue Lasix 40 mg by mouth daily #2 right lower lobe infiltrate with small bilateral pleural effusions noted on admission. Repeat chest x-ray no evidence of any acute infiltrate no clinical evidence of pneumonia and antibiotics were discontinued. #3 previous history of hypertension blood pressure is mildly elevated on presentation, patient stopped all of his blood pressure medications 3 years ago will assess during this admission #4 previous history of insulin-dependent diabetes mellitus, patient lost 170 pounds about 3 years ago and stopped taking insulin, glucose on presentation 146 , A1c 4.8. 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 Patient seen by cardiology #6 cardiomyopathy likely nonischemic since cath is clear. EF 20% on echo. Await cardiology recommendations. Per cardiology patient to be discharged with Life vest. LifeVest will not be available until tomorrow. planning on discharge home tomorrow #7 seasonal ALLERGIES: Improved with Benadryl #8 Sputum positive for Ella Albicans. Diflucan has been added. Patient continued to for 7 days post discharge. I performed an examination of the patient and discussed their management with the Nurse Practitioner. I have reviewed the Nurse Practitioner's notes and agree with the documented findings and plan of care
--- NOTE | 2018-01-14 15:45 | P.PN ---
Subjective Progress Note Date: 01/14/18 This is a 67-year-old male patient, presented to the emergency department with difficulty breathing of 3 weeks' duration. Has been expressing progressive exertional dyspnea orthopnea and some paroxysmal nocturnal dyspnea and lower extremity edema. No chest pain. No palpitation. No pleurisy. No hemoptysis. No fever chills or night sweats. No previous history of cardiac disease. He is an ex-smoker and quit smoking 3 years ago. Patient was diuresed on IV Lasix , and is on oral diuretics at this time. He is awake today, in no acute distress. No chest pain or palpitations. Hemodynamically stable. Patient will be scheduled morning undergo cardiac catheterization with Dr. Parkinson, the risks and benefits were explained to the patient in detail and he is willing to proceed. 01/14/2018 Patient seen and examined this morning, underwent a cardiac catheterization yesterday by Dr. Parkinson, which revealed normal coronary arteries with ectopic circumflex, medical therapy advised. Ejection fraction documented to be less than 20%, nonischemic cardiomyopathy, patient at risk for sudden cardiac . For this reason he was advised a LifeVest. Current paperwork is in progress for this. He's been encouraged today to be up ambulating in the hallway, plan for possible discharge tomorrow with LifeVest in place. Objective - Vital Signs Vital signs: Vital Signs Temp 97.1 F L 01/14/18 12:00 Pulse 72 01/14/18 12:00 Resp 16 01/14/18 12:00 BP 121/75 01/14/18 12:00 Pulse Ox 96 01/14/18 12:00 Intake & Output 01/13/18 01/14/18 01/14/18 18:59 06:59 18:59 Intake Total 577 810 490 Output Total 225 Balance 352 810 490 Weight 100.4 kg 103 kg Intake: IV 100 810 10 Invasive Line 2 10 10 Sodium Chloride 0.9% 1, 600 000 ml @ 75 mls/hr IV . [id number] [facility] Rx#:[id number] Sodium Chloride 0.9% @ 20 200 ml/hr Oral 477 480 Output: Urine 225 Other: Voiding Method Toilet Toilet Toilet Urinal Urinal Urinal # Voids 1 2 # Bowel Movements 0 - Exam Head exam was generally normal. There was no scleral icterus or corneal arcus. Mucous membranes were moist. Neck was supple and with jugular venous distension, thyromegaly, or carotid bruits. Carotids were easily palpable bilaterally. There was no adenopathy. Lungs sounds are diminished in the right lung base along with dullness to percussion the patient has bilateral basilar crackles right greater than left. Cardiac exam revealed the PMI to be normally situated and sized. The rhythm was regular and no extrasystoles were noted during several minutes of auscultation. The first and second heart sounds were normal and physiologic splitting of the second heart sound was noted. There were no murmurs, rubs, clicks, or gallops. Abdominal exam revealed normal bowel sounds. The abdomen was soft, non-tender, and without masses, organomegaly, or appreciable enlargement of the abdominal aorta. Examination of the extremities revealed easily palpable radial, femoral and pedal pulses. There was no cyanosis, clubbing and there is trace edema, right groin soft Examination of the skin revealed no evidence of significant rashes, suspicious appearing nevi or other concerning lesions. Neurologically awake and alert and there is no focal neurological deficit - Labs CBC & Chem 7: 01/14/18 05:37 01/14/18 05:37 Labs: Abnormal Lab Results - Last 24 Hours (Table) 01/14/18 01/14/18 Range/Units 05:37 05:37 Hgb 12.9 L (13.0-17.5) gm/dL MCHC 30.5 L (31.0-37.0) g/dL BUN 26 H (9-20) mg/dL Glucose 109 H (74-99) mg/dL Calcium 8.2 L (8.4-10.2) mg/dL Total Protein 5.2 L (6.3-8.2) g/dL Albumin 2.8 L (3.5-5.0) g/dL Microbiology - Last 24 Hours (Table) 01/09/18 15:34 Blood Culture - Preliminary Blood No Growth after 96 hours Assessment and Plan Plan: Assessment 1 acute hypoxic respiratory failure secondary to an acute exacerbation of systolic congestive heart failure, new onset. Ejection fraction less than 20%. 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 7 ex-smoker 8 status post cardiac catheterization which did not reveal any significant obstructive coronary artery disease. 9 nonischemic cardiomyopathy Plan Because of the ejection fraction of less than 20%, nonischemic cardiomyopathy, patient was advised to wear a life vest for prevention of sudden cardiac . He's been encouraged today to be up ambulating in the hallway as tolerated, we 'll plan for possible discharge home in 24 hours with a LifeVest if stable. DNP note has been reviewed, I agree with a documented findings and plan of care. Patient was seen and examined.
[2018-01-14] MEDS: ASPIRIN 81 MG PO SCH (20:24)
[2018-01-15] MEDS: SODIUM CHLORIDE 0.9% 1,000 ML IV SCH ×2 (00:33→11:51)
[2018-01-15] MEDS: CARVEDILOL 6.25 MG TAB PO SCH (06:22)
[2018-01-15 06:47] LABS: Basophils # (A) 0.1 k/uL (0-0.2); Basophils % (A) 1 %; Eosinophils # (A) 0.4 k/uL (0-0.7); Eosinophils % (A) 6 %; HCT 48.4 % (39.0-53.0); HGB 14.3 gm/dL (13.0-17.5); Hypochromasia Slight; Lymphocytes # (A) 1.9 k/uL (1.0-4.8); Lymphocytes % (A) 30 %; MCH 27.4 pg (25.0-35.0); MCHC 29.5 g/dL (31.0-37.0); MCV 92.8 fL (80.0-100.0); Mean Platelet Volume 7.5; Monocytes # (A) 0.5 k/uL (0-1.0); Monocytes % (A) 9 %; Neutrophils # (A) 3.2 k/uL (1.3-7.7); Neutrophils % (A) 52 %; Platelet Count 199 k/uL (150-450); RBC 5.21 m/uL (4.30-5.90); WBC 6.2 k/uL (3.8-10.6)
[2018-01-15 06:56] LABS: Albumin 3.5 g/dL (3.5-5.0); Calcium 8.8 mg/dL (8.4-10.2); Potassium 5.2 mmol/L (3.5-5.1); Total Bilirubin 0.6 mg/dL (0.2-1.3); Total Protein 6.2 g/dL (6.3-8.2)
[2018-01-15] MEDS: SPIRONOLACTONE 25 MG TAB PO SCH (08:30)
[2018-01-15] MEDS: MAGNESIUM OXIDE 400 MG TAB PO SCH (08:30)
[2018-01-15] MEDS: diphenhydrAMINE 50 MG CAP PO SCH (08:30)
[2018-01-15] MEDS: FUROSEMIDE 40 MG TAB PO SCH (08:30)
[2018-01-15] MEDS: CHOLECALCIFEROL 1,000 UNIT TAB PO SCH (08:30)
[2018-01-15] MEDS: HEPARIN SODIUM,PORCINE 5,000 UNIT/ML 1 ML VIAL SQ SCH (08:31)
[2018-01-15 08:43] VITALS: TEMP 96.7
[2018-01-15] MEDS ORDERED: FLUCONAZOLE 150 MG TAB PO SCH (09:00)
[2018-01-15] MEDS ORDERED: LOSARTAN 25 MG TAB PO SCH (09:30)
[2018-01-15] MEDS: ALPRAZolam 0.5 MG TAB PO PRN (09:59)
[2018-01-15 12:16] VITALS: BP 146/79; PULSE 77; RESP 16
--- NOTE | 2018-01-15 12:58 | P.DS ---
Providers Date of admission: 01/09/18 14:29 Expected date of discharge: 01/15/18 Attending physician: Dion Leal Consults: 01/09/18 14:29 Consult Physician Routine Consulting Provider: Domonique Alex Consult Reason/Comments: Pneumonia, Do you want consulting provider notified?: Yes Consult Physician Routine Consulting Provider: Edy Hansen Consult Reason/Comments: chf Do you want consulting provider notified?: Yes Primary care physician: Lashae Ward Hospital Course: Discharge diagnosis #1 acute systolic congestive heart failure exacerbation: echocardiogram done and revealed significant decrease in ejection fraction to 20% cardiology are following. Continue Lasix 40 mg by mouth daily, Aldactone 12.5 mg daily, Cozaar 25 mg daily, and Coreg 6.25 twice a day #2 right lower lobe infiltrate with small bilateral pleural effusions noted on admission. Repeat chest x-ray no evidence of any acute infiltrate no clinical evidence of pneumonia and antibiotics were discontinued. #3 previous history of hypertension blood pressure is mildly elevated on presentation, patient stopped all of his blood pressure medications 3 years ago will assess during this admission #4 previous history of insulin-dependent diabetes mellitus, patient lost 170 pounds about 3 years ago and stopped taking insulin, glucose on presentation 146 , A1c 4.8. Blood sugars within normal range since admission #5 abnormal EKG with evidence of an old MS involving the anterior myocardial wall. Patient seen by cardiology #6 nonischemic cardiomyopathy since cath is clear. EF 20% on echo. Patient will receive his LifeVest between 3:00 and 4:00 later today. He then can be discharged #7 seasonal ALLERGIES: Improved with Benadryl #8 Sputum positive for Ella Albicans. Diflucan has been added. Patient continued to for 7 days post discharge. #9 hyperkalemia: Aldactone decreased to 12.5 mg daily. Educated patient on the low potassium diet. #10 elevated CO2 of 35 this morning. Oxygen was discontinued. He is satting at 93% on room air Hospital course Gelacio Vásquez he is a 67-year-old male patient of Dr. Ward who presented to [facility] emergency room due to worsening shortness of breath he was evaluated in the emergency room his preliminary evaluation revealed evidence of acute congestive heart failure exacerbation with pulmonary edema, and patchy right lower lobe infiltrate suggestive of pneumonia with small bilateral pleural effusion he was started on IV Lasix and IV antibiotic and was admitted to telemetry floor. Patient denies ever being diagnosed with congestive heart failure, he denies having any heart attacks in the past he denies having any cardiac catheterization, he states that he had hypertension, hyperlipidemia, and insulin -dependent diabetes mellitus, he underwent extreme diet and lost more than 170 pounds, and stopped taking all his blood pressure medication and his insulin and has been doing well for the last 3 years, this is his first admission to the hospital in many years. He denies having any chest pain, right lower extremity was more swollen than the left in the emergency room, he underwent right lower extremity Doppler which was negative for DVT. BNP was elevated at 10,100 Patient was subsequently admitted to telemetry floor, he was started on oxygen supplement, and IV Lasix 40 mg every 8 hours, he was also started on IV Rocephin and IV Zithromax, sputum culture was ordered. On 01/10/2018 patient is feeling better he is alert and oriented in no apparent distress he is still having occasional cough without any sputum production he is having shortness of breath but significantly improved from before there is no chest pain no palpitation no dizziness no fever or chills no nausea or vomiting no abdominal pain no diarrhea and no urinary symptoms On 01/11/2018 patient is alert and oriented 3 he is sitting on the edge of his bed he has no chest pain or shortness of breath at the present time he gets some shortness of breath when trying to ambulate, otherwise he denies any symptoms, there is no fever or chills no headache no dizziness no chest pain or shortness of breath no cough no nausea or vomiting no abdominal pain and no urinary symptoms. 01/12/2018 patient is scheduled for heart catheterization tomorrow. He is complaining of his sinus congestion acting up. He usually takes Benadryl at home and requesting that this is restarted. Patient denies any chest pain or shortness of breath. He did have a slight cough to clear his postnasal drip. Denies any fever chills or sweats. Denies any nausea vomiting bowel movement changes or urinary symptoms. 01/13/2018 patient underwent heart catheterization today showed normal coronary arteries with ectopic circumflex. Patient has a known cardiomyopathy EF 20% which is new for patient. Cardiology is following closely. Awaiting their further recommendations. Patient is lying in bed comfortably denies any chest pain or shortness of breath. Denies any nausea or vomiting. Denies any bowel movement changes or urinary symptoms. On 01/14/2018 patient is currently alert and oriented 3 resting comfortably in bed. Patient states that he had a bit of anxiety last night due to family issues. Episode was relieved with Xanax. Discussed case with Jessica per cardiology. Patient will be discharged home with life vest. LifeVest will likely not be available until tomorrow. Patient okay with being discharged tomorrow once LifeVest is available. Patient denies chest pain or shortness breath denies nausea vomiting or diarrhea. Sputum positive for Ella Albicans , Difluca has been added Patient is medically stable for discharge on 01/15/2018 once he receives his LifeVest. LifeVest should be available around 3 to 4:00 this afternoon. Nursing staff has been instructed that once patient receives his LifeVest he can be discharged home. During this admission patient was started on Lasix, Coreg, Cozaar and Aldactone. He is tolerating these medications well. Patient' s symptoms have improved. He'll follow-up with cardiology and his PCP in 1 week. Also discussed with cardiology about possibly starting patient on Entresto. Cardiology nurse practitioner recommends evaluating patient for this medication in the outpatient setting. Check BMP in 3 days I performed an examination of the patient and discussed their management with the physician Food Demonstrator. I have reviewed the Physician Food Demonstrator's notes and agree with the documented findings and plan of care Patient Condition at Discharge: Stable Plan - Discharge Summary Discharge Rx Participant: Yes New Discharge Prescriptions: New Carvedilol [Coreg] 6.25 mg PO BID-W/MEALS #60 tab Fluconazole [Diflucan] 150 mg PO DAILY #7 tab Furosemide [Lasix] 40 mg PO DAILY #30 tab Losartan [Cozaar] 25 mg PO DAILY #30 tab Spironolactone [Aldactone] 12.5 mg PO DAILY #30 tablet Continue diphenhydrAMINE [Benadryl] 50 mg PO DAILY PRN PRN Reason: Allergy Symptoms Magnesium 200 mg PO DAILY Ginkgo Biloba [place] Extract [Ginkgo] 60 mg PO DAILY Cholecalciferol (Vitamin D3) [Vitamin D3] 2,000 unit PO DAILY Ubidecarenone [Co Q-10] 100 mg PO DAILY [place] 160 mg PO DAILY [place]-3 Fatty Acids/Fish Oil [Fish Oil 1,000 mg Softgel] 1 cap PO DAILY Diazepam [Valium] 5 - 10 mg PO DAILY PRN PRN Reason: Anxiety Cyclobenzaprine [Flexeril] 5 - 10 mg PO Q8H PRN PRN Reason: Muscle Spasm Aspirin EC [Ecotrin Low Dose] 81 mg PO HS Chlorpheniramine/Dextromethorp [Coricidin Hbp Cough & Cold Tab] 1 tab PO HS PRN PRN Reason: Cold Symptoms Discharge Medication List Aspirin EC [Ecotrin Low Dose] 81 mg PO HS 01/09/18 [History] Chlorpheniramine/Dextromethorp [Coricidin Hbp Cough & Cold Tab] 1 tab PO HS PRN 01/09/18 [History] Cholecalciferol (Vitamin D3) [Vitamin D3] 2,000 unit PO DAILY 01/09/18 [History] Cyclobenzaprine [Flexeril] 5 - 10 mg PO Q8H PRN 01/09/18 [History] Diazepam [Valium] 5 - 10 mg PO DAILY PRN 01/09/18 [History] Ginkgo Biloba [place] Extract [Ginkgo] 60 mg PO DAILY 01/09/18 [History] Magnesium 200 mg PO DAILY 01/09/18 [History] [place]-3 Fatty Acids/Fish Oil [Fish Oil 1,000 mg Softgel] 1 cap PO DAILY [History] Saw [place] 160 mg PO DAILY 01/09/18 [History] Ubidecarenone [Co Q-10] 100 mg PO DAILY 01/09/18 [History] diphenhydrAMINE [Benadryl] 50 mg PO DAILY PRN 01/09/18 [History] Carvedilol [Coreg] 6.25 mg PO BID-W/MEALS #60 tab 01/15/18 [Rx] Fluconazole [Diflucan] 150 mg PO DAILY #7 tab 01/15/18 [Rx] Furosemide [Lasix] 40 mg PO DAILY #30 tab 01/15/18 [Rx] Losartan [Cozaar] 25 mg PO DAILY #30 tab 01/15/18 [Rx] Spironolactone [Aldactone] 12.5 mg PO DAILY #30 tablet 01/15/18 [Rx] Follow up Appointment(s)/Referral(s): Harry Sanders MD [STAFF PHYSICIAN] - 01/28/18 9:30 am (Friday) Lashae Ward MD [Primary Care Provider] - 01/21/18 11:15 am (Friday with [facility]) Ambulatory/Diagnostic Orders: Basic Metabolic Panel [LAB.AMB] Time Frame: 1 Week, Location: None Selected Patient Instructions/Handouts: *Surgery [facility] - After Heart Catheterization - Highway Maintainer Instructions, Left Heart Catheterization (DC) Activity/Diet/Wound Care/Special Instructions: Diet: cardiac Activity: as tolerated Patient needs life vest before discharge home Discharge Disposition: HOME SELF-CARE
--- NOTE | 2018-01-15 15:05 | P.PN ---
Subjective Progress Note Date: 01/15/18 This is a 67-year-old male patient, presented to the emergency department with difficulty breathing of 3 weeks' duration. Has been expressing progressive exertional dyspnea orthopnea and some paroxysmal nocturnal dyspnea and lower extremity edema. No chest pain. No palpitation. No pleurisy. No hemoptysis. No fever chills or night sweats. No previous history of cardiac disease. He is an ex-smoker and quit smoking 3 years ago. Patient was diuresed on IV Lasix , and is on oral diuretics at this time. He is awake today, in no acute distress. No chest pain or palpitations. Hemodynamically stable. Patient will be scheduled morning undergo cardiac catheterization with Dr. Parkinson, the risks and benefits were explained to the patient in detail and he is willing to proceed. 01/14/2018 Patient seen and examined this morning, underwent a cardiac catheterization yesterday by Dr. Parkinson, which revealed normal coronary arteries with ectopic circumflex, medical therapy advised. Ejection fraction documented to be less than 20%, nonischemic cardiomyopathy, patient at risk for sudden cardiac . For this reason he was advised a LifeVest. Current paperwork is in progress for this. He's been encouraged today to be up ambulating in the hallway, plan for possible discharge tomorrow with LifeVest in place. 01/15/2018 Patient seen and examined this morning, doing well overall, he's been up ambulating without any difficulty. No dynamically stable. White blood cell count 6.2, hemoglobin 14.3, platelet count 199. Sodium 142, potassium 5.2, BUN 24, creatinine 1.02. We'll decrease his Aldactone to 12-1/2 mg daily. He may be able to be discharged home today, we will check lytes BUN and creatinine in 3 days. LifeVest will be placed prior to discharge. Objective - Vital Signs Vital signs: Vital Signs Temp 96.7 F L 01/15/18 08:00 Pulse 77 01/15/18 12:00 Resp 16 01/15/18 12:00 BP 146/79 01/15/18 12:00 Pulse Ox 93 L 01/15/18 12:00 Intake & Output 01/14/18 01/15/18 01/15/18 18:59 06:59 18:59 Intake Total 730 840 870 Balance 730 840 870 Weight 103 kg Intake: IV 10 600 150 Invasive Line 2 10 Sodium Chloride 0.9% 1, 600 150 000 ml @ 75 mls/hr IV . [id number] [facility] Rx#:[id number] Oral 720 240 720 Other: Voiding Method Toilet Toilet Urinal Urinal # Voids 2 # Bowel Movements 0 - Exam Head exam was generally normal. There was no scleral icterus or corneal arcus. Mucous membranes were moist. Neck was supple and with jugular venous distension, thyromegaly, or carotid bruits. Carotids were easily palpable bilaterally. There was no adenopathy. Lungs sounds are diminished in the right lung base along with dullness to percussion the patient has bilateral basilar crackles right greater than left. Cardiac exam revealed the PMI to be normally situated and sized. The rhythm was regular and no extrasystoles were noted during several minutes of auscultation. The first and second heart sounds were normal and physiologic splitting of the second heart sound was noted. There were no murmurs, rubs, clicks, or gallops. Abdominal exam revealed normal bowel sounds. The abdomen was soft, non-tender, and without masses, organomegaly, or appreciable enlargement of the abdominal aorta. Examination of the extremities revealed easily palpable radial, femoral and pedal pulses. There was no cyanosis, clubbing and there is trace edema, right groin soft Examination of the skin revealed no evidence of significant rashes, suspicious appearing nevi or other concerning lesions. Neurologically awake and alert and there is no focal neurological deficit - Labs CBC & Chem 7: 01/15/18 06:20 01/15/18 06:20 Labs: Abnormal Lab Results - Last 24 Hours (Table) 01/15/18 01/15/18 Range/Units 06:20 06:20 MCHC 29.5 L (31.0-37.0) g/dL Potassium 5.2 H (3.5-5.1) mmol/L Carbon Dioxide 35 H (22-30) mmol/L BUN 24 H (9-20) mg/dL Glucose 102 H (74-99) mg/dL Total Protein 6.2 L (6.3-8.2) g/dL Microbiology - Last 24 Hours (Table) 01/09/18 15:34 Blood Culture - Preliminary Blood No Growth after 120 hours Assessment and Plan Plan: Assessment 1 acute hypoxic respiratory failure secondary to an acute exacerbation of systolic congestive heart failure, new onset. Ejection fraction less than 20%. 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 7 ex-smoker 8 status post cardiac catheterization which did not reveal any significant obstructive coronary artery disease. 9 nonischemic cardiomyopathy Plan Because of the ejection fraction of less than 20%, nonischemic cardiomyopathy, patient was advised to wear a life vest for prevention of sudden cardiac . We will decrease Aldactone to 12-1/2 mg daily, continue the rest of the patient's medications. He may be able to be discharged home today from cardiology's perspective, we'll make a follow-up appointment in the office post discharge. Lytes BUN and creatinine in 3 days. DNP note has been reviewed, I agree with a documented findings and plan of care. Patient was seen and examined.
== END 2018-01-15 17:14 | disposition home or self-care (01) | DRG 286 ==
LOC: EC 12:35 → 6SEL 14:29
PROVIDERS: ADMIT Internal Medicine; ATTEND Internal Medicine
PROC: B3101ZZ Fluoroscopy of Thoracic Aorta using Low Osmolar Contrast (ICD-10-PCS; 2018-01-13)
PROC: B2111ZZ Fluoroscopy of Multiple Coronary Arteries using Low Osmolar Contrast (ICD-10-PCS; 2018-01-13)
PROC: 4A023N7 Measurement of Cardiac Sampling and Pressure, Left Heart, Percutaneous Approach (ICD-10-PCS; principal; 2018-01-13 08:30)
DX: I11.0 Hypertensive heart disease with heart failure (principal); J96.01 Acute respiratory failure with hypoxia; B37.89 Other sites of candidiasis; I50.23 Acute on chronic systolic (congestive) heart failure; J30.2 Other seasonal allergic rhinitis; E89.0 Postprocedural hypothyroidism; F41.9 Anxiety disorder, unspecified; I25.2 Old myocardial infarction; I08.0 Rheumatic disorders of both mitral and aortic valves; I42.8 Other cardiomyopathies; E11.9 Type 2 diabetes mellitus without complications; E87.5 Hyperkalemia; I44.4 Left anterior fascicular block; Z79.899 Other long term (current) drug therapy; Z82.49 Family history of ischemic heart disease and other diseases of the circulatory system; Z85.828 Personal history of other malignant neoplasm of skin; Z87.01 Personal history of pneumonia (recurrent); Z87.891 Personal history of nicotine dependence; R74.8 Abnormal levels of other serum enzymes; Z86.39 Personal history of other endocrine, nutritional and metabolic disease; Z79.82 Long term (current) use of aspirin
CPT/HCPCS: 36415; 71046; 80048; 80053; 82550; 82553; 83036; 83605; 83735; 83880; 84439; 84443; 84484; 85025; 85610; 85730; 87040; 87070; 87205; 93005; 93306; 93458; 94640; 94760; 96365; 96375; 99285